=== PATIENT | female | born 1980 | race Caucasian/White ===

== ENCOUNTER 2023-10-11 15:46 | Outpatient (AMB) | payer OTHER, SELFPAY ==
--- NOTE | 2023-10-11 15:48 | A.OFFPC_ITS ---
Vital Signs 10/11/23 15:49 Height 5 ft 6 in Weight 234 lb BMI 37.8 BP 140/100 H Blood Pressure Location Rt brachial Position Sitting Pulse 103 H Pulse Source Pulse Oximeter Pulse Oximetry (%) 96 Oxygen Delivery Method Room Air Intake Visit Reasons: New patient-requesting physical Allergies hydromorphone [From Dilaudid] Allergy (Severe, Verified 10/11/23 15:50) Unresponsive amoxicillin Adverse Reaction (Mild, Verified 10/11/23 15:50) hives Medication List - Last Reconciled 10/11/23 by KIANA Reyes- cetirizine (Zyrtec) 10 mg PO DAILY PRN fenofibrate 145 mg PO DAILY multivitamin 1 tab PO DAILY phenylephrine HCl (Sudafed PE) 10 mg PO Q4-6H PRN spironolactone 25 mg PO DAILY Tobacco use date assessed: 10/11/23 Dental Screening Dental Screen Date: 10/11/23 Did you have a dental visit in the last 12 months?: Yes Did you have a dental problem in the last 6 months where you did not have access to dental care?: No Was dental information given to patient?: Patient has dentist HPI New patient-requesting physical HPI Details New pt is here for a PE. Will order labs. 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 Will refer to endo. Will start spironolactone 25mg for PCOS and blood pressure. Due for mammo, will order. Pt is on sudafed. I explained this is a very unsafe medication to take, especially with HTN. WIll have her take her BPs at home, drop off values in the near future. [facility] Family History Brother Family history of substance abuse Family history of mental disorder Social History Housing: House Patient Tobacco Use Status: Never used Tobacco e-Cigarette/Vaping Use: Never Used service: No Current occupational status: employed Cognitive needs: No Hearing needs: No Vision needs: Yes Questionnaire PHQ-9 Over the last 2 weeks, how often have you been bothered by any of the following problems? 1. Little interest or pleasure in doing things: not at all 2. Feeling down, depressed, or hopeless: not at all 3. Trouble falling or staying asleep, or sleeping too much: several days 4. Feeling tired or having little energy: several days 5. Poor appetite or overeating: not at all 6. Feeling bad about yourself - or that you are a failure or have let yourself or your family down: not at all 7. Trouble concentrating on things, such as reading the newspaper or watching television: not at all 8. Moving or speaking so slowly that other people could have noticed. Or the opposite - being so fidgety or restless that you have been moving around a lot more than usual: not at all 9. Thoughts that you would be better off or of hurting yourself in some way: not at all Total score: 2 Depression Screening Interpretation: Negative Depression Screening Done: Yes 32441 - PHQ-9 Billing: Yes Source: Developed by Drs. Dago Quintana, Candace Jo, Roosevelt Mancia and colleagues, with an educational hugo from [employer]. Thrive Questionnaire Date Thrive assessed: 10/11/23 I am a: Patient What is your living situation today?: I have a steady place to live Within the past 12 months, did the food you bought not last and you didn't have the money to get more?: Never true Within the past 12 months, did you worry whether your food would run out before you got money to buy more?: Never true Do you have trouble paying for medicines?: No Do you have trouble getting transportation to medical appointments?: No Do you have trouble paying your heating and electricity bill?: No Do you have trouble taking care of your child, family member or friend?: No Do you have trouble with day-to-day activities such as bathing, preparing meals, shopping, managing finances, etc.?: No Are you currently unemployed and looking for a job?: No Are you interested in more education?: Yes Currently or been in a relationship where the following occur: no concerns reported AUDIT C Alcohol Use Questionnaire (AUDIT-C) 1. How often do you have a drink containing alcohol?: Never 3. How often do you have six or more drinks on one occasion?: Never Total Score: 0 Score Reviewed/Action Taken: No TENA-7 AMB Questionnaire TENA-7 Date TENA - 7 assessed: 10/11/23 Feeling nervous, anxious, or on edge: 1 = Several days Not being able to stop or control worryin = Not at all Worrying too much about different things: 0 = Not at all Trouble relaxin = Not at all Being so restless that it is hard to sit still: 0 = Not at all Becoming easily annoyed or irritable: 1 = Several days Feeling afraid as if something awful might happen: 0 = Not at all Total TENA-7 score (0-4 normal; 5-9 mild; 10-14 moderate; 15-21 severe): 2 Source: Developed by Drs. Dago Quintana, Candace Jo, Roosevelt Mancia and colleagues, with an educational hugo from [employer]. TENA-7 Assessment Billing TENA-7 Assessment Tool: TENA-7 Assessment 80934 Review of Systems Const Denies chills and Denies fever(s) Eyes Denies blurry vision ENT Denies vertigo, Denies dizziness and Denies sore throat Card Denies chest pain at rest, Denies chest pain with activity, Denies diaphoresis, Denies dyspnea and Denies dyspnea on exertion Resp Denies cough, Denies dyspnea, Denies dyspnea on exertion and Denies wheezing GI Denies abdominal pain, Denies melena, Denies hematochezia, Denies constipation, Denies diarrhea and Denies loose stools Denies hematuria Musc Denies numbness and Denies tingling Skin/Breast Denies lesions Neuro Denies vertigo, Denies dizziness, Denies numbness and Denies tingling Psych Denies anxiety, Denies depression, Denies homicidal ideation, Denies suicidal ideation and Denies other (substance abuse) Aller/Immun Denies wheezing Physical exam (Primary Care) Vital Signs: Last Vital Signs Pulse 103 H 10/11/23 15:49 BP 140/100 H 10/11/23 15:49 Pulse Ox 96 10/11/23 15:49 Oxygen Delivery Method Room Air 10/11/23 15:49 BMI result Body Mass Index 37.8 Tobacco/Smoking Status: Tobacco use Status Tobacco use date assessed 10/11/23 10/11/23 15:55 Patient Tobacco Use Status Never used Tobacco 10/11/23 15:55 e-Cigarette/Vaping Use Never Used 10/11/23 15:55 PHQ-9: PHQ-9 Score PHQ-9: Total score 2 10/11/23 16:48 Depression Screening Interpretation: Negative Thrive Assessment: Date of Thrive Assessment Date Thrive assessed 10/11/23 10/11/23 16:48 Currently or been in a relationship where the following occur: no concerns reported Const General: cooperative Nutritional Appearance: obese Orientation/consciousness: patient oriented x3 HENMT Head: Yes normal to inspection, Yes normocephalic and Yes atraumatic Ears: TM's normal bilaterally Eyes General: appearance normal, both eyes and all related structures Alignment and Position: alignment normal and position normal Neck Neck: Yes normal visual inspection and Yes no lymphadenopathy Thyroid: Thyroid normal Resp Effort & Inspection: normal respiratory effort Auscultation: clear to auscultation bilaterally Cardio Rate: regular rate Rhythm: regular rhythm Heart sounds: S1 normal heart sound present, S2 normal heart sound present and no murmurs GI Palpation (GI): Soft to palpation and nontender Auscultation: normal bowel sounds Skin Other: hirsutism to chin Rashes: no rashes Neuro General: patient oriented x3, moves all extremities, no focal motor deficits and deep tendon reflexes 2+ bilaterally Romberg Test: Negative Psych Appearance: grossly normal Mental Status: mental status grossly normal Speech and movement: Normal speech and movement present Affect: normal affect Attitude: cooperative Thought process: Normal thought process present Thought content: Normal thought content present Insight: Good insight present (Psych) Judgement: Good judgement present (Psych) Assessment and Plan Assessment & Plan (1) Physical exam: Code(s): Z00.00 - Encounter for general adult medical examination without abnormal f indings Plan: Labs ordered (2) PCOS (polycystic ovarian syndrome): Code(s): E28.2 - Polycystic ovarian syndrome Plan: starting spironolactone, referring to endo Plan The patient agreed to the use of a medical specialist for this encounter. Scribed for NORA Hoyos by Ruchi Man medical specialist, on 10/11/2023 at 16:15 EST. Orders: Orders Complete Blood Count Auto Diff Today Z00.00 - Encounter for general adult medical examination without abnormal findings Comprehensive [place]. Panel Fast Today Z00.00 - Encounter for general adult medical examination without abnormal findings TSH reflex Free T4 Today Z00.00 - Encounter for general adult medical examination without abnormal findings UA CC w/rflx Micro + Cult Today Z00.00 - Encounter for general adult medical examination without abnormal findings Lipid Panel Today Z00.00 - Encounter for general adult medical examination without abnormal findings MM screening mammo BI Today Z12.31 - Encounter for screening mammogram for malignant neoplasm of breast Referrals Endocrinology Referral E28.2 - Polycystic ovarian syndrome Medications: New spironolactone 25 mg PO DAILY 90 tabs 0RF fenofibrate 145 mg (0.9667 x 150 mg) PO DAILY 90 caps 0RF Coding Level of Care Code New Pt Prev Care 40-64y(46291) Diagnoses Physical exam Z00.00 PCOS (polycystic ovarian syndrome) E28.2 Additional Codes TENA-7 Assessment Billing - TENA-7 Assessment Tool: TENA-7 Assessment 50268 ([id number])
[2023-10-11 15:49] VITALS: BP 140/100; PULSE 103; O2SAT 96; BMI 37.8
== END 2023-10-11 16:43 | disposition home or self-care (01) ==
PROVIDERS: PCP Nurse Practitioner Family; Visit Provider Nurse Practitioner Family
DX: Z00.00 Encounter for general adult medical examination without abnormal findings (principal); E28.2 Polycystic ovarian syndrome
CPT/HCPCS: 99386

== ENCOUNTER 2023-11-04 07:54 | Outpatient (REF) | payer OTHER, SELFPAY ==
[2023-11-04 11:29] LABS: MANUAL DIFF FLAG NO
[2023-11-04 11:37] LABS: Appearance Urine Clear; Color Urine Yellow; Glucose Urine UA Negative (Negative); Leukocyte Esterase Urine Trace (Negative); Nitrite Urine Negative (Negative); PH 6.5 (5.0-9.0); UMIC TRIGGER UACC YES; Urine Blood Trace (Negative); Urine Ketones Negative (Negative); Urine Protein Negative (Neg-Trace)
[2023-11-04 11:42] LABS: Basophils Absolute Auto 0.1 X10*3/uL (0.0-0.2); Basophils Percent Auto 1.2 % (0-2); Eosinophils Absolute Auto 0.2 X10*3/uL (0.0-0.4); Eosinophils Percent Auto 2.2 % (0-4); Hematocrit 42.9 % (37.0-47.0); Hemoglobin 14.3 g/dl (12.0-16.0); Imm Gran Abs Auto 0.08 X10*3/uL (0.00-0.03); Imm Gran Pct Auto 0.9 % (0.0-0.4); Lymphocytes Absolute Auto 3.4 X10*3/uL (1.2-4.9); Lymphocytes Percent Auto 36.3 % (20-40); Mean Corpuscular HGB Conc 33.3 g/dl (31.0-35.0); Mean Corpuscular Volume 89.9 fL (80.0-98.0); Mean Platelet Volume 9.7 fL (9.4-12.3); Monocytes Absolute Auto 0.7 X10*3/uL (0.1-1.2); Monocytes Percent Auto 7.1 % (2-11); Neutrophils Absolute Auto 4.9 x10*3/uL (2.0-8.3); Neutrophils Percent Auto 52.3 % (45-73); Platelet Count 299 X10*3/uL (160-400); Red Blood Count 4.77 X10*6/uL (4.20-5.50); Red Cell Distribution Width 12.9 % (11.0-16.0); White Blood Count 9.3 X10*3/uL (4.8-10.8)
[2023-11-04 11:42] LABS: Bacteria Urine Trace (None Seen); Hyaline Casts Urine 0-2 /LPF (0-2); RBC Urine 0-2 /HPF (0-2); WBC Urine 0-5 /HPF (0-5)
[2023-11-04 12:04] LABS: Alanine Aminotransferase 37 U/L (0-31); Albumin Level 4.2 g/dL (3.5-5.0); Alkaline Phosphatase 43 U/L (39-117); Anion Gap 14 (12-20); Aspartate Amino Transferase 82 U/L (5-31); Bilirubin Total 0.4 mg/dL (0.0-1.0); Blood Urea Nitrogen 11 mg/dL (9-16); Calcium 10.3 mg/dL (8.4-10.2); Carbon Dioxide 22 mmol/L (22-29); Chloride 103 mmol/L (96-108); Cholesterol 273 mg/dL (<200); Estimated Glomerular Filt Rate > 60; Glucose Fasting 123 mg/dL (60-99); HDL Cholesterol 29 mg/dL (>40); Potassium 3.7 mmol/L (3.3-5.1); Sodium 135 mmol/L (135-145); Total Protein 7.9 g/dL (6.5-8.0); Triglycerides 1303 mg/dL (<150)
[2023-11-04 12:07] LABS: TSH reflex Free T4 2.91 uIU/mL (0.32-4.0)
== END 2023-11-04 07:55 | disposition home or self-care (01) ==
LOC: HO.HMGCLDS 07:54
PROVIDERS: PCP Nurse Practitioner Family; Visit Provider Nurse Practitioner Family
DX: Z00.00 Encounter for general adult medical examination without abnormal findings (principal)
CPT/HCPCS: 36415; 80053; 80061; 81001; 84443; 85025

== ENCOUNTER 2023-11-11 08:28 | Outpatient (REF) | payer OTHER, SELFPAY ==
[2023-11-11 11:29] LABS: Appearance Urine Clear; Color Urine Yellow; Glucose Urine UA Negative (Negative); Leukocyte Esterase Urine Moderate (2+) (Negative); Nitrite Urine Negative (Negative); Specific Gravity - Urine <= 1.005 (1.005-1.025); UMIC TRIGGER UACC YES; Urine Blood Small (1+) (Negative); Urine Ketones Negative (Negative); Urine Protein Negative (Neg-Trace)
[2023-11-11 11:47] LABS: Bacteria Urine Trace (None Seen); Hyaline Casts Urine 0-2 /LPF (0-2); RBC Urine 0-2 /HPF (0-2); Squamous Epithelial Cell Urine 0-2 /HPF (0-2); UACC Culture Trigger YES
[2023-11-11 12:06] LABS: Alanine Aminotransferase 24 U/L (0-31); Albumin Level 4.2 g/dL (3.5-5.0); Alkaline Phosphatase 40 U/L (39-117); Anion Gap 15 (12-20); Aspartate Amino Transferase 39 U/L (5-31); Bilirubin Total 0.3 mg/dL (0.0-1.0); Blood Urea Nitrogen 9 mg/dL (9-16); Calcium 10.1 mg/dL (8.4-10.2); Carbon Dioxide 22 mmol/L (22-29); Chloride 105 mmol/L (96-108); Cholesterol 226 mg/dL (<200); Estimated Glomerular Filt Rate > 60; Glucose Fasting 123 mg/dL (60-99); HDL Cholesterol 29 mg/dL (>40); Potassium 4.3 mmol/L (3.3-5.1); Sodium 138 mmol/L (135-145); Total Protein 7.6 g/dL (6.5-8.0); Triglycerides 838 mg/dL (<150)
[2023-11-13 04:09] LABS: HBS Num1 0.43 mIU/mL (0-7.99); HBc Num1 0.07 S/CO (0.00-0.79); HBsAGNum1 0.31 S/CO (0.00-0.99); Hepatitis A Antibody IgM 0.21 Index (0-0.79); Hepatitis B Core Antibody Nonreactive (Nonreactive); Hepatitis B Surface Antigen Negative (Negative); ~HepC Num1 0.07 S/CO (0.00-0.79); ~Hepatitis A Antibody IgM Nonreactive (Nonreactive); ~Hepatitis B Surface Antibody NONREACTIVE (Nonreactive); ~Hepatitis C Antibody Nonreactive (Nonreactive)
== END 2023-11-11 08:29 | disposition home or self-care (01) ==
LOC: HO.HMGCLDS 08:28
PROVIDERS: PCP Nurse Practitioner Family; Visit Provider Nurse Practitioner Family
DX: R74.8 Abnormal levels of other serum enzymes (principal); E78.1 Pure hyperglyceridemia; R82.90 Unspecified abnormal findings in urine
CPT/HCPCS: 36415; 80053; 80061; 81001; 86704; 86706; 86709; 86803; 87086; 87340

== ENCOUNTER 2023-11-22 08:47 | Outpatient (REF) | payer OTHER, SELFPAY ==
--- NOTE | ~2023-11-22 | US_ITS ---
EXAMINATION: US ABDOMEN COMPLETE CLINICAL INFORMATION: Abnormal levels of other serum enzymes. Elevated liver enzymes. COMPARISON: None available. TECHNIQUE: Real-time imaging of the abdominal viscera. Technically difficult study secondary to body habitus. FINDINGS: PANCREAS: Limited. The visualized pancreatic head and body are normal in appearance. The remainder of the pancreas is obscured from visualization by the overlying bowel gas. ABDOMINAL AORTA: The proximal, mid, and distal segments are normal in caliber. INFERIOR VENA CAVA: Visualized portions are normal. LIVER: There is hepatomegaly, with a longitudinal span of 22.5 cm. The liver contour is normal. There is diffuse increased liver parenchymal echogenicity. No focal hepatic lesion. There is no intrahepatic biliary duct dilatation seen. GALLBLADDER: The gallbladder is physiologically distended. Multiple mobile gallstones are present. No evidence of gallbladder wall thickening or pericholecystic fluid. COMMON BILE DUCT: Normal in caliber measuring 0.5 cm in diameter. RIGHT KIDNEY: Normal. No hydronephrosis. No renal calculi or focal parenchymal lesions. The kidney measures 14.0 cm in maximum dimension. LEFT KIDNEY: Normal. No hydronephrosis. No renal calculi or focal parenchymal lesions. The kidney measures 13.3 cm in maximum dimension. SPLEEN: Normal. The spleen measures 12.9 cm in maximum dimension. FREE FLUID: None. US/US abdomen complete IMPRESSION: 1. There is hepatomegaly and borderline splenomegaly. 2. There is generalized increase in hepatic echotexture, consistent with fatty infiltration or hepatocellular disease. Please correlate clinically. No focal hepatic mass or intrahepatic biliary dilatation is seen. 3. There is cholelithiasis. 4. Technically limited examination of the pancreatic tail.
== END 2023-11-22 08:48 | disposition home or self-care (01) ==
LOC: HO.HMGCX 08:47
PROVIDERS: PCP Nurse Practitioner Family; Visit Provider Nurse Practitioner Family
DX: R74.8 Abnormal levels of other serum enzymes (principal)
CPT/HCPCS: 76700

== ENCOUNTER 2023-12-04 11:42 | Outpatient (REF) | payer OTHER, SELFPAY ==
--- NOTE | ~2023-12-04 | MM_ITS ---
EXAMINATION: MM SCREENING DIGITAL BREAST TOMOSYNTHESIS, BILATERAL CLINICAL INFORMATION: Screening. Asymptomatic. COMPARISON: Mammography: This is a baseline mammogram. TECHNIQUE: Digital breast tomosynthesis is performed in both the craniocaudal and mediolateral oblique views along with computer-aided detection (CAD). Synthesized 2D images are generated from the tomosynthesis. FINDINGS: There are scattered areas of fibroglandular density (ACR BI-RADS breast composition Category b). There are no significant masses, abnormal calcifications, or other abnormalities. MM/MM tomosynthesis screening BI IMPRESSION: No mammographic evidence of malignancy. ASSESSMENT: BI-RADS BI-RADS 1 - Negative RECOMMENDATION: Routine annual mammography screening. 1 year F/U This examination should not preclude the clinical evaluation of a suspicious palpable abnormality. This patient's information was entered into a reminder system with a target due date for their next mammogram.
== END 2023-12-04 11:43 | disposition home or self-care (01) ==
LOC: HO.MAMMO 11:42
PROVIDERS: PCP Nurse Practitioner Family; Visit Provider Nurse Practitioner Family
DX: Z12.31 Encounter for screening mammogram for malignant neoplasm of breast (principal)
CPT/HCPCS: 77063; 77067

== ENCOUNTER → 2023-12-04 11:45 | Outpatient (BNV) | payer OTHER, SELFPAY | PROVIDERS: PCP Nurse Practitioner Family; Visit Provider Radiology Diagnostic Radiology | DX: Z12.31 Encounter for screening mammogram for malignant neoplasm of breast (principal) | CPT/HCPCS: 77063; 77067 ==

== ENCOUNTER 2023-12-30 08:03 | Outpatient (REF) | payer OTHER, SELFPAY ==
[2023-12-30 12:27] LABS: Alanine Aminotransferase 53 U/L (0-31); Albumin Level 4.3 g/dL (3.5-5.0); Alkaline Phosphatase 37 U/L (39-117); Anion Gap 15 (12-20); Aspartate Amino Transferase 70 U/L (5-31); Bilirubin Total 0.5 mg/dL (0.0-1.0); Blood Urea Nitrogen 11 mg/dL (9-16); Calcium 10.5 mg/dL (8.4-10.2); Carbon Dioxide 24 mmol/L (22-29); Chloride 103 mmol/L (96-108); Cholesterol 203 mg/dL (<200); Estimated Glomerular Filt Rate > 60; Glucose Fasting 131 mg/dL (60-99); HDL Cholesterol 27 mg/dL (>40); Potassium 4.1 mmol/L (3.3-5.1); Sodium 138 mmol/L (135-145); Total Protein 7.9 g/dL (6.5-8.0); Triglycerides 776 mg/dL (<150)
[2023-12-30 12:35] LABS: Appearance Urine Clear; Color Urine Yellow; Glucose Urine UA Negative (Negative); Leukocyte Esterase Urine Negative (Negative); Nitrite Urine Negative (Negative); PH 7.5 (5.0-9.0); Specific Gravity - Urine <= 1.005 (1.005-1.025); Urine Blood Negative (Negative); Urine Ketones Negative (Negative); Urine Protein Negative (Neg-Trace)
== END 2023-12-30 08:04 | disposition home or self-care (01) ==
LOC: HO.HMGCLDS 08:03
PROVIDERS: PCP Nurse Practitioner Family; Visit Provider Nurse Practitioner Family
DX: Z00.00 Encounter for general adult medical examination without abnormal findings (principal); E78.1 Pure hyperglyceridemia; E78.5 Hyperlipidemia, unspecified
CPT/HCPCS: 36415; 80053; 80061; 81003

== ENCOUNTER 2024-01-01 06:57 | Outpatient (AMB) | payer OTHER, SELFPAY ==
--- NOTE | 2024-01-01 07:19 | A.OFFPC_ITS ---
Intake Visit Reasons: Discuss BP logs/Labs Allergies hydromorphone [From Dilaudid] Allergy (Severe, Verified 10/11/23 15:50) Unresponsive amoxicillin Adverse Reaction (Mild, Verified 10/11/23 15:50) hives atorvastatin [From Lipitor] Adverse Reaction (Verified 11/08/23 08:57) muscle pain Medication List - Last Reconciled 01/01/24 by NORA Reyes cetirizine (Zyrtec) 10 mg PO DAILY PRN fenofibrate nanocrystallized 145 mg PO DAILY 90 days fluvastatin 20 mg PO QPM metformin ER 500 mg PO BID 90 days multivitamin 1 tab PO DAILY omega-3 acid ethyl esters 2 caps PO BID 90 days phenylephrine HCl (Sudafed PE) 10 mg PO Q4-6H PRN spironolactone 50 mg PO DAILY Tobacco use date assessed: 10/11/23 HPI Discuss BP logs/Labs HPI Details Dyslipidemia: On fluvastatin 20mg, fenofibrate 145mg, and omega 3 acid ethyl esters 2 caps bid. Last lipids were elevated. Will increase fluvastatin to 40mg. Pt has been working on her diet. She is taking her medications as prescribed. Pt is following up with endo due to PCOS. She is on metformin for this. Pt's is a newly-diagnosed diabetic, on a statin. Will increase metformin from 500mg daily to 500mg bid. Denies polyuria, polydipsia, and neuropathy. Pt denies any signs and symptoms of hypoglycemia and does know how to correct it. Pt is interested in trying a medication for weight loss and to help with her sugars. Will send ozempic 0.25mg, this class should help her with her weight loss, which should help a lot of her current conditions. Will cont to monitor. Will start losartan for blood pressure and renal protection. [facility] Family History Brother Family history of substance abuse Family history of mental disorder Social History Housing: House Patient Tobacco Use Status: Never used Tobacco e-Cigarette/Vaping Use: Never Used service: No Current occupational status: employed Cognitive needs: No Hearing needs: No Vision needs: Yes Questionnaire Thrive Questionnaire Date Thrive assessed: 10/11/23 TENA-7 AMB Questionnaire TENA-7 Date TENA - 7 assessed: 10/11/23 Source: Developed by Drs. Dago Quintana, Candace Jo, Roosevelt Mancia and colleagues, with an educational hugo from [employer]. Review of Systems Const Reports as per HPI Physical exam (Primary Care) Tobacco/Smoking Status: Tobacco use Status Tobacco use date assessed 10/11/23 01/01/24 07:20 Patient Tobacco Use Status Never used Tobacco 01/01/24 07:20 e-Cigarette/Vaping Use Never Used 01/01/24 07:20 Thrive Assessment: Date of Thrive Assessment Date Thrive assessed 10/11/23 01/01/24 07:20 Const General: cooperative Orientation/consciousness: patient oriented x3 Neuro General: patient oriented x3 Psych Appearance: grossly normal Mental Status: mental status grossly normal Speech and movement: Clear speech present Affect: normal affect Attitude: cooperative Thought process: Normal thought process present Thought content: Normal thought content present Insight: Good insight present (Psych) Judgement: Good judgement present (Psych) Telehealth Telehealth Location of provider rendering services: practice address Location of patient: address on file Patient Identification confirmed using: Name, : Yes Telehealth method: video Patient verbally consented to treatment: Yes Patient verbally consented to billing insurance company: Yes Patient informed of any privacy concerns related to visit: Yes Minutes spent on Phone/Video with Pt.: 10 Assessment and Plan Assessment & Plan (1) High triglycerides: Code(s): E78.1 - Pure hyperglyceridemia Plan: increased fluvastatin, already on fenofibrate and generic lovaza (2) Dyslipidemia: Code(s): E78.5 - Hyperlipidemia, unspecified Plan: increased fluvastatin, continue all other meds, cont to watch labs (3) Diabetes: Code(s): E11.9 - Type 2 diabetes mellitus without complications Plan: seeing endo, also associated PCOS. increased metformin, and started ozempic Plan The patient agreed to the use of a medical apparatus model maker for this encounter. Scribed for NORA Hoyos by Ruchi Man medical apparatus model maker, on 01/01/2024 at 07:15 EST. Orders: Orders Lipid Panel 2 Months E78.1 - Pure hyperglyceridemia, E78.5 - Hyperlipidemia, unspecified UA CC w/rflx Micro + Cult 2 Months E78.1 - Pure hyperglyceridemia, E78.5 - Hyperlipidemia, unspecified Complete Blood Count Auto Diff 2 Months E78.1 - Pure hyperglyceridemia, E78.5 - Hyperlipidemia, unspecified Comprehensive [place]. Panel Fast 2 Months E78.1 - Pure hyperglyceridemia, E78.5 - Hyperlipidemia, unspecified Medications: New semaglutide (Ozempic) for 4 weeks 0.25 mg (0.368 mL) subcut QWEEK 3 mL 0RF losartan for BP and Renal Protection (diabetes) 25 mg PO DAILY 90 tabs 0RF 90 days Changed From metformin ER 500 mg PO DAILY 90 tabs 0RF To metformin ER 500 mg PO BID 90 days 180 tabs 0RF From fluvastatin 20 mg PO QPM 90 caps 0RF To fluvastatin 40 mg PO QPM 90 caps 0RF Coding Level of Care Code Tele Est Pt Level 3 (60789) Diagnoses High triglycerides E78.1 Dyslipidemia E78.5 Diabetes E11.9
== END 2024-01-01 13:54 | disposition home or self-care (01) ==
PROVIDERS: PCP Nurse Practitioner Family; Visit Provider Nurse Practitioner Family
DX: E78.1 Pure hyperglyceridemia (principal); E78.5 Hyperlipidemia, unspecified; E11.9 Type 2 diabetes mellitus without complications
CPT/HCPCS: 99214

== ENCOUNTER 2024-03-23 09:10 | Outpatient (REF) | payer OTHER, SELFPAY ==
[2024-03-23 11:08] LABS: MANUAL DIFF FLAG NO
[2024-03-23 11:11] LABS: Basophils Absolute Auto 0.1 X10*3/uL (0.0-0.2); Basophils Percent Auto 0.8 % (0-2); Eosinophils Absolute Auto 0.2 X10*3/uL (0.0-0.4); Eosinophils Percent Auto 1.6 % (0-4); Hemoglobin 14.7 g/dl (12.0-16.0); Imm Gran Abs Auto 0.04 X10*3/uL (0.00-0.03); Imm Gran Pct Auto 0.4 % (0.0-0.4); Lymphocytes Absolute Auto 3.8 X10*3/uL (1.2-4.9); Lymphocytes Percent Auto 37.8 % (20-40); Mean Corpuscular Hemoglobin 30.2 pg (27.0-33.0); Mean Corpuscular Volume 86.4 fL (80.0-98.0); Mean Platelet Volume 8.9 fL (9.4-12.3); Monocytes Absolute Auto 0.7 X10*3/uL (0.1-1.2); Monocytes Percent Auto 7.3 % (2-11); Neutrophils Absolute Auto 5.2 x10*3/uL (2.0-8.3); Neutrophils Percent Auto 52.1 % (45-73); Platelet Count 320 X10*3/uL (160-400); Red Blood Count 4.86 X10*6/uL (4.20-5.50)
[2024-03-23 11:14] LABS: Appearance Urine Cloudy; Color Urine Yellow; Glucose Urine UA Negative (Negative); Leukocyte Esterase Urine Small (1+) (Negative); Nitrite Urine Negative (Negative); PH 6.5 (5.0-9.0); UMIC TRIGGER UACC YES; Urine Blood Negative (Negative); Urine Ketones Negative (Negative); Urine Protein Trace mg/dL (Neg-Trace)
[2024-03-23 11:27] LABS: Bacteria Urine 2+ (None Seen); Hyaline Casts Urine 0-2 /LPF (0-2); RBC Urine 0-2 /HPF (0-2); UACC Culture Trigger YES
[2024-03-23 11:30] LABS: Alanine Aminotransferase 17 U/L (0-31); Albumin Level 4.6 g/dL (3.5-5.0); Alkaline Phosphatase 24 U/L (39-117); Anion Gap 14 (12-20); Aspartate Amino Transferase 21 U/L (5-31); Bilirubin Total 0.5 mg/dL (0.0-1.0); Blood Urea Nitrogen 12 mg/dL (9-16); Carbon Dioxide 22 mmol/L (22-29); Chloride 104 mmol/L (96-108); Cholesterol 193 mg/dL (<200); Estimated Glomerular Filt Rate > 60; Glucose Fasting 85 mg/dL (60-99); HDL Cholesterol 28 mg/dL (>40); Potassium 3.9 mmol/L (3.3-5.1); Sodium 136 mmol/L (135-145); Triglycerides 487 mg/dL (<150)
== END 2024-03-23 09:11 | disposition home or self-care (01) ==
LOC: HO.HMGCLDS 09:10
PROVIDERS: PCP Nurse Practitioner Family; Visit Provider Nurse Practitioner Family
DX: E78.1 Pure hyperglyceridemia (principal); E78.5 Hyperlipidemia, unspecified; R82.90 Unspecified abnormal findings in urine
CPT/HCPCS: 36415; 80053; 80061; 81001; 85025; 87086

== ENCOUNTER 2024-04-01 08:51 | Outpatient (AMB) | payer OTHER, SELFPAY ==
--- NOTE | 2024-04-01 07:12 | A.OFFPC_ITS ---
Intake Visit Reasons: Discuss BP logs/Labs Allergies hydromorphone [From Dilaudid] Allergy (Severe, Verified 04/01/24 07:36) Unresponsive amoxicillin Adverse Reaction (Mild, Verified 04/01/24 07:36) hives atorvastatin [From Lipitor] Adverse Reaction (Verified 04/01/24 07:36) muscle pain Medication List - Last Reconciled 04/01/24 by NORA Reyes blood sugar diagnostic ([employer]Touch Ultra Test strips) Test blood sugar once a day blood-glucose meter ([employer]Touch Ultra2 Meter) As directed cetirizine (Zyrtec) 10 mg PO DAILY PRN fenofibrate nanocrystallized 145 mg PO DAILY 90 days fluvastatin 40 mg PO QPM lancets (OneTouch Delica Plus Lancet) Test blood sugar once a day losartan 25 mg PO DAILY 90 days metformin ER 500 mg PO BID 90 days multivitamin 1 tab PO DAILY omega-3 acid ethyl esters 2 caps PO BID 90 days phenylephrine HCl (Sudafed PE) 10 mg PO Q4-6H PRN semaglutide (Ozempic) 0.5 mg subcut QWEEK spironolactone 50 mg PO DAILY Tobacco use date assessed: 10/11/23 Dental Screening Dental Screen Date: 10/11/23 HPI Discuss BP logs/Labs HPI Details Dyslipidemia: Pt is currently taking fenofibrate 145mg, fluvastatin 40mg, and omega 3 acid ethyl esters, trigs trending down. Will order labs to cont to monitor. HTN: Pt reports that her blood pressure has been stable for the last 1.5 weeks. Denies chest pain, shortness of breath, headache, blurred vision, and dizziness. Pt is following up with endo due to PCOS and diabetes. She is taking ozempic 0.5mg and has been on this dose for 1 month. She would like to continue this current dose right now. [facility] Medical History Fatty liver Family History Brother Family history of substance abuse Family history of mental disorder Social History Housing: House Patient Tobacco Use Status: Never used Tobacco e-Cigarette/Vaping Use: Never Used service: No Current occupational status: employed Cognitive needs: No Hearing needs: No Vision needs: Yes Questionnaire Thrive Questionnaire Date Thrive assessed: 10/11/23 TENA-7 AMB Questionnaire TENA-7 Date TENA - 7 assessed: 10/11/23 Source: Developed by Drs. Dago Quintana, Candace Jo, Roosevelt Mancia and colleagues, with an educational hugo from [employer]. Review of Systems Const Reports as per HPI Physical exam (Primary Care) Tobacco/Smoking Status: Tobacco use Status Tobacco use date assessed 10/11/23 04/01/24 07:13 Patient Tobacco Use Status Never used Tobacco 04/01/24 07:13 e-Cigarette/Vaping Use Never Used 04/01/24 07:13 Thrive Assessment: Date of Thrive Assessment Date Thrive assessed 10/11/23 04/01/24 07:13 Const General: cooperative Orientation/consciousness: patient oriented x3 Neuro General: patient oriented x3 Psych Appearance: grossly normal Mental Status: mental status grossly normal Speech and movement: Clear speech present Affect: normal affect Attitude: cooperative Thought process: Normal thought process present Thought content: Normal thought content present Insight: Good insight present (Psych) Judgement: Good judgement present (Psych) Telehealth Telehealth Telehealth Platform: [employer] Location of provider rendering services: practice address Location of patient: address on file Patient Identification confirmed using: Name, : Yes Telehealth method: video Patient verbally consented to treatment: Yes Patient verbally consented to billing insurance company: Yes Patient informed of any privacy concerns related to visit: Yes Minutes spent on Phone/Video with Pt.: 10 Assessment and Plan Assessment & Plan (1) Dyslipidemia: Code(s): E78.5 - Hyperlipidemia, unspecified Plan: Labs ordered (2) High triglycerides: Code(s): E78.1 - Pure hyperglyceridemia Plan: Labs ordered (3) PCOS (polycystic ovarian syndrome): Code(s): E28.2 - Polycystic ovarian syndrome Plan: Following up with endo (4) Diabetes: Code(s): E11.9 - Type 2 diabetes mellitus without complications Plan: Following up with endo Plan The patient agreed to the use of a medical staff assistant for this encounter. Scribed for KIANA Hoyos- by Ruchi Man, medical staff assistant, on 04/01/2024 at 07:15 EST. Orders: Orders Complete Blood Count Auto Diff Today E78.1 - Pure hyperglyceridemia, E78.5 - Hyperlipidemia, unspecified Comprehensive [place]. Panel Fast Today E78.1 - Pure hyperglyceridemia, E78.5 - Hyperlipidemia, unspecified UA CC w/rflx Micro + Cult Today E78.1 - Pure hyperglyceridemia, E78.5 - Hyperlipidemia, unspecified Lipid Panel Today E78.1 - Pure hyperglyceridemia, E78.5 - Hyperlipidemia, unspecified LDL Cholesterol Direct Today E78.1 - Pure hyperglyceridemia, E78.5 - Hyperlipidemia, unspecified TSH reflex Free T4 Today E78.1 - Pure hyperglyceridemia, E78.5 - Hyperlipidemia, unspecified Coding Level of Care Code Tele Est Pt Level 3 (79310) Diagnoses Dyslipidemia E78.5 High triglycerides E78.1 PCOS (polycystic ovarian syndrome) E28.2 Diabetes E11.9
== END 2024-04-01 09:01 | disposition home or self-care (01) ==
LOC: HO.HMGC 08:51
PROVIDERS: PCP Nurse Practitioner Family; Visit Provider Nurse Practitioner Family
DX: E78.5 Hyperlipidemia, unspecified (principal); E78.1 Pure hyperglyceridemia; E28.2 Polycystic ovarian syndrome; E11.9 Type 2 diabetes mellitus without complications
CPT/HCPCS: 99213

== ENCOUNTER 2024-10-31 07:32 | Outpatient (REF) | payer OTHER, SELFPAY ==
--- OUTSIDE RECORDS SUMMARY | 2024-10-31 08:11 | XMS_ITS | Continuity of Care Document ---
Author Organization [facility] Address [address] [facility] [address] [place] [address] Phone [phone] Care Team Providers Care Corduroy Cutting Supervisor Name Role Phone Luke Jacome Care Team Information Program Manufacturing Leader [phone] Problems Active Problems Provider Date Polycystic ovary [...] Medications SIG Qnty Indications Ordering Provider Date Ogbouzeh8ki/0.5ML Solution Pen-Inject Use 1 Injection (0.5 ML) Under The Skin Every Week 2units E11.9 Brianne Solis M.D. 04/29/2024 Freestyle Yanet 2/Sensor/Flash Glucose Monitoring Vhlzok6Mnxpto Misc 1 sensor to skin every fourteen days as directed dx: e11.9 6units E11.9 Brianne Solis M.D. 02/14/2024 E66.9 -20mg-mcg Tablets Unknown Kzsukvvjhkpyac38kd Tablets Take 2 by reed th every day 30tabs [facility] Metformin HCL UR064nv Tablets ER 24HR 1 by mouth twice a day 180tabs [facility] Fluvastatin Ixgpld31ym Capsules 1 cap by mouth every evening [facility] Eruoh-6-Pscl Ethyl Vvwzqg5fx Capsules [facility] Quchgqledfg178wu Tablets 1 by mouth every day 90tabs [facility] Losartan Qnuqtiyhh12sk Tablets 1 by mouth every day 90tabs [facility] History Medications Cnoycsgn5uy/0.5ML Solution Auto-Inject 5 mg subcutaneously once a week 2ml Z68.37 Brianne Solis M.D. 04/29/2024 - 04/29/2024 Jbflhbtesaxot5hx Tablets 1 tablet by mouth at 11 [...] Free 1.20 ng/dL High 0.10-0.85 1 Test(s) 013941-Mgokg sterone, Total, LC/MS was developed and its performance characteristics determined by [facility]. It has not been cleared or approved [...] Reason for Referral Status Appt Atif e [facility] Endocrinology & Diabetes MORTGAGE OPERATIONS MANAGER Closed [address] [place] [address] [phone]
[2024-10-31 10:12] LABS: MANUAL DIFF FLAG NO
[2024-10-31 10:17] LABS: Basophils Absolute Auto 0.1 X10*3/uL (0.0-0.2); Basophils Percent Auto 0.6 % (0-2); Eosinophils Absolute Auto 0.1 X10*3/uL (0.0-0.4); Hematocrit 41.8 % (37.0-47.0); Hemoglobin 14.1 g/dl (12.0-16.0); Imm Gran Abs Auto 0.05 X10*3/uL (0.00-0.03); Imm Gran Pct Auto 0.5 % (0.0-0.4); Lymphocytes Absolute Auto 3.4 X10*3/uL (1.2-4.9); Lymphocytes Percent Auto 30.9 % (20-40); Mean Corpuscular HGB Conc 33.7 g/dl (31.0-35.0); Mean Corpuscular Volume 88.9 fL (80.0-98.0); Monocytes Absolute Auto 0.7 X10*3/uL (0.1-1.2); Neutrophils Absolute Auto 6.8 x10*3/uL (2.0-8.3); Platelet Count 327 X10*3/uL (160-400); Red Cell Distribution Width 12.6 % (11.0-16.0); White Blood Count 11.1 X10*3/uL (4.8-10.8)
[2024-10-31 10:22] LABS: Appearance Urine Cloudy; Color Urine Yellow; Glucose Urine UA Negative (Negative); Leukocyte Esterase Urine Small (1+) (Negative); Nitrite Urine Negative (Negative); PH 5.5 (5.0-9.0); Specific Gravity - Urine 1.025 (1.005-1.025); UMIC TRIGGER UACC YES; Urine Blood Negative (Negative); Urine Ketones Trace mg/dL (Negative); Urine Protein Trace mg/dL (Neg-Trace)
[2024-10-31 10:38] LABS: Bacteria Urine Trace (None Seen); Hyaline Casts Urine 0-2 /LPF (0-2); UACC Culture Trigger YES
[2024-10-31 10:39] LABS: RBC Urine 0-2 /HPF (0-2)
[2024-10-31 10:47] LABS: Albumin Level 4.4 g/dL (3.5-5.0); Anion Gap 14 (12-20); Aspartate Amino Transferase 22 U/L (5-31); Bilirubin Total 0.3 mg/dL (0.0-1.0); Blood Urea Nitrogen 13 mg/dL (9-16); Calcium 10.4 mg/dL (8.4-10.2); Carbon Dioxide 20 mmol/L (22-29); Chloride 106 mmol/L (96-108); Cholesterol 194 mg/dL (<200); Estimated Glomerular Filt Rate > 60; Glucose Fasting 87 mg/dL (60-99); HDL Cholesterol 32 mg/dL (>40); Potassium 4.3 mmol/L (3.3-5.1); Sodium 136 mmol/L (135-145); Total Protein 8.2 g/dL (6.5-8.0); Triglycerides 485 mg/dL (<150)
[2024-10-31 10:57] LABS: Estimated Average Glucose 114 mg/dL; Hemoglobin A1C 140.5381 umol/L; Hemoglobin A1c % 5.6 % (<6.0); Total Hemoglobin (HGBA1C) 3752.8942 umol/L
[2024-10-31 10:58] LABS: TSH reflex Free T4 3.14 uIU/mL (0.32-4.0)
[2024-10-31 11:03] LABS: Creatinine Urine 241.41 mg/dL; Microalbum/Creatinine Ratio Ur 33.5 ug/mg cr (<30)
[2024-10-31 11:12] LABS: Alkaline Phosphatase 22 U/L (39-117)
[2024-10-31 13:01] LABS: Alanine Aminotransferase 10 U/L (0-31)
== END 2024-10-31 07:33 | disposition home or self-care (01) ==
LOC: HO.HMGCLDS 07:32
PROVIDERS: PCP Nurse Practitioner Family; Visit Provider Nurse Practitioner Family
DX: Z00.00 Encounter for general adult medical examination without abnormal findings (principal); E11.9 Type 2 diabetes mellitus without complications; E66.9 Obesity, unspecified
CPT/HCPCS: 36415; 80053; 80061; 81001; 82043; 82570; 83036; 84443; 85025; 87086

== ENCOUNTER 2024-10-31 07:32 | Outpatient (AMB) | payer OTHER, SELFPAY ==
--- OUTSIDE RECORDS SUMMARY | 2024-10-31 07:34 | XMS_ITS ---
Author Name [facility] Organization Unknown History of Medication Use Medication Directions Dispensed Refills Start Date End Date Stat us losartan (COZAAR) tablet 25 mg Take 1 tablet (25 mg total) by mouth daily. 08/03/2024 10/15/9999 active Multiple Vitamin (MULTIVITAMIN ADULT PO) Take by mouth. 01/17/2024 active cetirizine (ZYRTEC) 10 MG tablet Take 1 tablet (10 mg total) by mouth daily. 01/17/2024 active spironolactone (ALDACTONE) tablet 50 mg 01/17/2024 active fluvastatin (LESCOL) 40 MG capsule 01/17/2024 active clotrimazole-betameth asone (Lotrisone) cream Apply thin film externally to affected area 2 times daily as needed 01/17/2024 active norethindrone-ethinyl estradiol (JUNE11/04) 1-20 MG-MCG per tablet Take 1 tablet by mouth daily. 01/17/2024 active dexamethasone (DECADRON) tablet 1 mg 01/17/2024 active fenofibrate (TRICOR) tablet 145 mg Take 1 tablet (145 mg total) by mouth daily. 01/17/2024 active omega-3 acid ethyl esters (LOVAZA) capsule 1 g 01/17/2024 active losartan (COZAAR) tablet 25 mg 01/17/2024 active Semaglutide,0.25 or 0.5MG/DOS, (Ozempic, 0.25 or 0.5 MG/DOSE,) 2 MG/3ML SOPN 01/17/2024 active valACYclovir (VALTREX) 1000 MG tablet WHEN SYMPTOMS BEGIN TAKE 2 TABLETS BY MOUTH EVERY 12 HOURS FOR ONE DAY (4 TABLETS TOTAL PER EPISODE) 01/17/2024 active metFORMIN (GLUCOPHAGE-XR) ER 24 hr tablet 500 mg 01/17/2024 active Problems Problem Status Onset Date Problem Type Date of Resoluti on Source GERD (gastroesophageal reflux disease) active 2016-07-23 ProblemAct [facility] Hyperlipidemia active 2016-07-23 ProblemAct CTT [facility] Palpitations active 2017-06-16 ProblemAct [facility] EMG Encounter for gynecological examination with abnormal finding active 2020-11-05 ProblemAct [facility] MG Surveillance of contraceptive pill active 2024-08-01 ProblemAct [facility] Menorrhagia with irregular cycle active 2024-08-01 ProblemAct [facility] Hirsutism active 2020-11-05 ProblemAct [facility] Class 2 severe obesity due to excess calories with serious comorbidity and body mass index (BMI) of 37.0 to 37.9 in adult active 2024-01-15 ProblemAct [facility] MG Allergic rhinitis active 2016-07-23 ProblemAct [facility] Syncope and collapse active 2017-06-16 ProblemAct [facility] Cervical cancer screening active 2020-11-05 ProblemAct [facility] PCOS (polycystic ovarian syndrome) active 2017-10-17 ProblemAct [facility] Precordial pain active 2017-06-[address] ProblemAct [facility] Immunizations Vaccine Date Source Lot Number Status Covid-19 (Moderna 12+) 100mcg/0.5mL dosage 05/07/2021 [facility] NEM [id number] completed
--- OUTSIDE RECORDS SUMMARY | 2024-10-31 07:34 | XMS_ITS | Continuity of Care Document ---
Author Organization [facility] Address [address] [facility] [address] [place] [address] Phone [phone] Care Team Providers Care Regional Sales Leader Name Role Phone Luke Jacome Care Team Information Special Services Supervisor + [phone] Problems Active Problems Provider Date Polycystic ovary syndrome [facility] Ons et: 11/29/2023 Type 2 diabetes mellitus [facility] Onse t: 04/29/2024 Hyperlipidemia [facility] Onset: 2023 Obesity [facility] Onset: 2023 Essential hypertension [facility] Onset: 04/29/2024 Body mass index 30+ - obesity [facility] Onset: 04/29/2024 Social History Type Date Description Comments Sex Unknown Tobacco Use Start: Unknown Never Smoked Cigarettes ETOH Use Rarely consumes alcohol Allergies and adverse reactions Active Allergies Criticality Reaction Severity Comments Date Hydromorphone Unable to assess criticality 11/29/2023 Amoxicillin Unable to assess criticality 11/29/2023 Augmentin Unable to assess criticality 11/29/2023 Tramadol Unable to assess criticality 11/29/2023 Dilaudid Unable to assess criticality 11/29/2023 Seasonal Unable to assess criticality 11/29/2023 Medications Active Medications SIG Qnty Indications Ordering Provider Date Eivtsztv2gu/0.5ML Solution Pen-Inject Use 1 Injection (0.5 ML) Under The Skin Every Week 2units E11.9 Brianne Solis M.D. 04/29/2024 Freestyle Yanet 2/Sensor/Flash Glucose Monitoring Lazgna6Bdkafi Misc 1 sensor to skin every fourteen days as directed dx: e11.9 6units E11.9 Brianne Solis M.D. 02/14/2024 E66.9 -20mg-mcg Tablets Unknown Aiiakzpcieitut35qg Tablets Take 2 by reed th every day 30tabs [facility] Metformin HCL HV458xk Tablets ER 24HR 1 by mouth twice a day 180tabs [facility] Fluvastatin Vxidka89zs Capsules 1 cap by mouth every evening [facility] Ezqcw-4-Dmux Ethyl Vktalq2zz Capsules [facility] Eqzegncbpfp656gp Tablets 1 by mouth every day 90tabs [facility] Losartan Ovbmpgnry57wo Tablets 1 by mouth every day 90tabs [facility] History Medications Lhpsisli2bh/0.5ML Solution Auto-Inject 5 mg subcutaneously once a week 2ml Z68.37 Brianne Solis M.D. 04/29/2024 - 04/29/2024 Xsbiujhiwqgxy3kf Tablets 1 tablet by mouth at 11 pm 1giselle Solis M.D. 11/29/2023 - 02/14/2024 Vital Signs Date Vital Result Comment 02/14/2024 8:17am BP Systolic 132 mmHg BP Diastolic 84 mmHg Heart Rate 100 /min Height 66 inches 5'6 Weight 226.50 lb BMI (Body Mass Index) 36.6 kg/m2 Results Test Acquired Date Facility Test Result H/L Range N ote Laboratory test finding 02/14/2024 Inhouse Glucose Fingerstick 112 Laboratory test finding 02/01/2024 [facility] Hemoglobin A1c 7.1 % High 4.8-5.6 1, 2 % Free Testosterone 1.75 % 0.50-2.80 Cortisol 1.4 g /dL Low 6.2-19.4 3 Testosterone F Equilibrium + Tot LC/MS 02/01/2024 [facility] Testosterone, Total, LC/MS 68.4 ng/dL 4 Testosterone, Free 1.20 ng/dL High 0.10-0.85 1 Test(s) 185645-Hycoq sterone, Total, LC/MS was developed and its performance characteristics determined by [facility]. It has not been cleared or approved by the Food and Drug Administration. 2 Prediabetes: 5.7 - 6 .4 Diabetes: >6.4 Glycemic control for adults with diabetes: <7.0 3 Please Note: The ref erence interval and flagging for this test is for an AM collection. If this is a PM collection please use: Cortisol PM: 2.3-11.9 4 Female: Premenopausal 10.0 - 55.0 Postmenopausal 7.0 - 40.0 Medical Devices Description No Information Available Encounters Type Date Location Provider Dx Diagnosis Office Visit 02/14/2024 8:00a Main Office [facility] E11.9 Type 2 diabet es mellitus without complications E66.9 Obesity, unspecified I10 Essential (primary) hypertension E78.5 Hyperlipidemia, unsp ecified Z68.36 Body mass index [BMI ] 36.0-36.9, adult Assessments Date Code Description Provider 02/14/2024 E11.9 Type 2 diabetes mellitus wit hout complications [facility] 02/14/2024 E66.9 Obesity, unspecified [facility] 02/14/2024 I10 Essential (primary) hyperten gabrielle [facility] 02/14/2024 E78.5 Hyperlipidemia, unspecified [facility] 02/14/2024 Z68.36 Body mass index [BMI] 36.0-3 6.9, adult [facility] Plan of Treatment 02/14/2024 - [facility]* E11.9 Type 2 diabetes mellitus without complications * E66.9 Obesity, unspecified * I10 Essential (primary) hypertension * E78.5 Hyperlipidemia, unspecified * Z68.36 Body mass index [BMI] 36.0-36.9, adult* New Medication:* Freestyle Yanet 2/Sensor/Flash Glucose Monitoring System 2 Sensor Functional Status Description No Information Available Mental Status Description No Information Available Referrals Refer to Dr Reason for Referral Status Appt [facility] SENIOR SOFTWARE ARCHITECT Closed [address] [place] [address] [phone]
--- NOTE | 2024-10-31 07:39 | MHC.PC.OV ---
Vital Signs 10/31/24 07:42 Height 5 ft 6 in Weight 222 lb 2 oz BMI 35.8 BP 136/72 Blood Pressure Location Lt brachial Position Sitting Pulse 96 Pulse Source Pulse Oximeter Pulse Oximetry (%) 100 Oxygen Delivery Method Room Air Intake Visit Reasons: PE Intake Note: Pt is here today for her PE; Last mammogram 12/14/23 Allergies hydromorphone [From Dilaudid] Allergy (Severe, Verified 10/31/24 07:43) Unresponsive amoxicillin Adverse Reaction (Mild, Verified 10/31/24 07:43) hives atorvastatin [From Lipitor] Adverse Reaction (Verified 10/31/24 07:43) muscle pain Medication List - Last Reconciled 10/31/24 by PARISA ReyesP- blood sugar diagnostic ([employer]in [employer]ometric[employer]Touch Ultra Test strips) Test blood sugar once a day blood-glucose meter ([email or web address] Ultra2 Meter) As directed cetirizine (Zyrtec) 10 mg PO DAILY PRN fenofibrate nanocrystallized 145 mg PO DAILY 90 days fluvastatin 40 mg PO QPM lancets ([employer]Touch Delica Plus Lancet) Test blood sugar once a day losartan 25 mg PO DAILY metformin ER 500 mg PO BID 90 days multivitamin 1 tab PO DAILY omega-3 acid ethyl esters 2 caps PO BID 90 days phenylephrine HCl (Sudafed PE) 10 mg PO Q4-6H PRN spironolactone 50 mg PO DAILY Tobacco use date assessed: 10/31/24 Dental Screening Dental Screen Date: 10/31/24 Did you have a dental visit in the last 12 months?: Yes Did you have a dental problem in the last 6 months where you did not have access to dental care?: Yes Was dental information given to patient?: Patient has dentist HPI PE HPI Details History of Present Illness The patient is a 44-year-old female presenting for a routine physical examination and management of Type 2 Diabetes Mellitus. She has a history of diabetes characterized by polyuria, polydipsia, and neuropathy. The patient reports compliance with eye examinations being up-to-date. There is no history of recent chest pain, shortness of breath, abdominal pain, constipation, diarrhea, hematuria, SI or HI. She also states that past labs included testing for hemoglobin A1c and microalbumin, indicating ongoing monitoring of her diabetic status. The patient is also under gynecological care, as evidenced by recent Pap screenings, and she is obese. According to her statement, her general health has been stable, without any new complaints beyond the management of her existing conditions. NOTE: will re-establish with endo in near future. Health Maintenance - Eye examination is up to date - Mammogram is up to date - Pap smear screening is regularly conducted by FOOD SCIENCE PROFESSOR provider Social History Review of Systems - Constitutional: Denies chest pain, shortness of breath - Gastrointestinal: Denies abdominal pain, constipation, diarrhea, blood in stool - Neurological: Reports polyuria, polydipsia, neuropathy - Psychiatric: Denies suicidal ideation or homicidal thoughts Physical Exam General: Cooperative, healthy appearing, comfortable, no acute distress and well developed Orientation: Patient oriented x3 Limitations: No limitations Head: Normal to inspection Ears: Hearing grossly normal bilaterally Nose: Normal external nose present Face and sinus: Normal facial exam Eyes: Appearance normal, both eyes and all related structures Neck: Normal visual inspection and Yes full ROM Respiratory: Normal respiratory effort and able to speak in complete sentences. Clear to auscultation bilaterally Cardiovascular: Regular rate and rhythm. Normal S1 and S2 GI: Normal to inspection. Soft to palpation and nontender Skin: No rashes or lesions noted, but very dry feet bilaterally and hands also dry Neuro: Patient oriented x3 Extremities: Normal to inspection, feet intact bilaterally with positive sensation using monofilament Results Plan - Continue management of Type 2 Diabetes Mellitus with regular monitoring of hemoglobin A1c and microalbumin levels. - Ensure compliance with healthy lifestyle modifications to address obesity, such as dietary changes and increased physical activity. - Encourage ongoing compliance with eye and Pap smear examinations. - Maintain up-to-date mammogram screenings as part of routine care. Patient was informed and verbally consented to the use of an ambient scribe for clinic note documentation during this visit. Discussion Notes I discussed with the patient the importance of maintaining control over her Type 2 Diabetes Mellitus through regular monitoring and lifestyle modifications. This includes frequent checking of hemoglobin A1c and microalbumin levels, which are crucial for managing blood glucose and assessing renal function, respectively. We also reviewed her preventive health maintenance measures, underlining the continuation of timely eye examinations and cancer screenings, such as mammograms and Pap smears. The patient expressed understanding and was agreeable to the outlined management plan. Patient Instructions - Continue with routine diabetes monitoring including hemoglobin A1c and microalbumin. - Adhere to a diabetes-friendly diet and consider increasing physical activity to manage weight. - Ensure regular check-ups with your visitor services specialist and FOOD SCIENCE PROFESSOR provider for continued health monitoring. - Please seek medical attention if you experience any new or worsening symptoms, such as chest pain or significant fatigue. [facility] Medical History Fatty liver Family History Brother Family history of substance abuse Family history of mental disorder Social History Housing: House Patient Tobacco Use Status: Never used Tobacco e-Cigarette/Vaping Use: Never Used service: No Current occupational status: employed Cognitive needs: No Hearing needs: No Vision needs: Yes Questionnaire PHQ-9 Over the last 2 weeks, how often have you been bothered by any of the following problems? 1. Little interest or pleasure in doing things: not at all 2. Feeling down, depressed, or hopeless: several days 3. Trouble falling or staying asleep, or sleeping too much: several days 4. Feeling tired or having little energy: several days 5. Poor appetite or overeating: not at all 6. Feeling bad about yourself - or that you are a failure or have let yourself or your family down: not at all 7. Trouble concentrating on things, such as reading the newspaper or watching television: several days 8. Moving or speaking so slowly that other people could have noticed. Or the opposite - being so fidgety or restless that you have been moving around a lot more than usual: not at all 9. Thoughts that you would be better off or of hurting yourself in some way: not at all Total score: 4 Source: Developed by Drs. Dago Quintana, Candace Jo, Roosevelt Mancia and colleagues, with an educational hugo from [employer]. Thrive Questionnaire Date Thrive assessed: 10/25/24 I am a: Patient What is your living situation today?: I have a steady place to live Within the past 12 months, did the food you bought not last and you didn't have the money to get more?: Never true Within the past 12 months, did you worry whether your food would run out before you got money to buy more?: Never true Do you have trouble paying for medicines?: No Do you have trouble getting transportation to medical appointments?: No Do you have trouble paying your heating and electricity bill?: No Do you have trouble taking care of your child, family member or friend?: No Do you have trouble with day-to-day activities such as bathing, preparing meals, shopping, managing finances, etc.?: No Are you currently unemployed and looking for a job?: No Are you interested in more education?: No Please select the resources that you would like help with: None Currently or been in a relationship where the following occur: No concerns reported THRIVE Score: 0 AUDIT C Alcohol Use Questionnaire (AUDIT-C) 1. How often do you have a drink containing alcohol?: Never 3. How often do you have six or more drinks on one occasion?: Never Total Score: 0 TENA-7 AMB Questionnaire TENA-7 Date TENA - 7 assessed: 10/31/24 Feeling nervous, anxious, or on edge: 0 = Not at all Not being able to stop or control worryin = Not at all Worrying too much about different things: 0 = Not at all Trouble relaxin = Several days Being so restless that it is hard to sit still: 1 = Several days Becoming easily annoyed or irritable: 0 = Not at all Feeling afraid as if something awful might happen: 0 = Not at all Total TENA-7 score (0-4 normal; 5-9 mild; 10-14 moderate; 15-21 severe): 2 Source: Developed by Drs. Dago Quintana, Candace Jo, Roosevelt Mancia and colleagues, with an educational hugo from [employer]. Physical exam (Primary Care) Vital Signs: Last Vital Signs Pulse 96 10/31/24 07:42 BP 136/72 10/31/24 07:42 Pulse Ox 100 10/31/24 07:42 Oxygen Delivery Method Room Air 10/31/24 07:42 BMI result Body Mass Index 35.8 Tobacco/Smoking Status: Tobacco use Status Tobacco use date assessed 10/31/24 10/31/24 07:46 Patient Tobacco Use Status Never used Tobacco 10/31/24 07:40 e-Cigarette/Vaping Use Never Used 10/31/24 07:40 PHQ-9: PHQ-9 Score PHQ-9: Total score 4 10/31/24 07:40 Thrive Assessment: Date of Thrive Assessment Date Thrive assessed 10/25/24 10/31/24 07:40 Currently or been in a relationship where the following occur: No concerns reported Coding Level of Care Code Est Pt Prev Care 40-64y(30844) Diagnoses Physical exam Z00.00 Diabetes E11.9 Assessment & Plan Assessment & Plan (1) Physical exam: Code(s): Z00.00 - Encounter for general adult medical examination without abnormal findings Category: Medical (2) Diabetes: Code(s): E11.9 - Type 2 diabetes mellitus without complications Category: Medical Plan . Orders: Orders TSH reflex Free T4 Today E11.9 - Type 2 diabetes mellitus without complications, Z00.00 - Encounter for general adult medical examination without abnormal findings Lipid Panel Today E11.9 - Type 2 diabetes mellitus without complications, Z00.00 - Encounter for general adult medical examination without abnormal findings Microalbumin, Random (w Creat) Today E11.9 - Type 2 diabetes mellitus without complications, Z00.00 - Encounter for general adult medical examination without abnormal findings Hemoglobin A1c Today E11.9 - Type 2 diabetes mellitus without complications, Z00.00 - Encounter for general adult medical examination without abnormal findings Complete Blood Count Auto Diff Today E11.9 - Type 2 diabetes mellitus without complications, Z00.00 - Encounter for general adult medical examination without abnormal findings Comprehensive [place]. Panel Fast Today E11.9 - Type 2 diabetes mellitus without complications, Z00.00 - Encounter for general adult medical examination without abnormal findings UA CC w/rflx Micro + Cult Today E11.9 - Type 2 diabetes mellitus without complications, Z00.00 - Encounter for general adult medical examination without abnormal findings
[2024-10-31 07:42] VITALS: BP 136/72; PULSE 96; O2SAT 100; BMI 35.8
== END 2024-10-31 08:07 | disposition home or self-care (01) ==
PROVIDERS: PCP Nurse Practitioner Family; Visit Provider Nurse Practitioner Family
DX: Z00.00 Encounter for general adult medical examination without abnormal findings (principal); E11.9 Type 2 diabetes mellitus without complications

== ENCOUNTER 2024-12-09 11:30 | Outpatient (REF) | payer OTHER, SELFPAY ==
--- OUTSIDE RECORDS SUMMARY | 2024-12-09 13:16 | XMS_ITS | Clinical Summary ---
Author Organization [facility] Address [address] [place] [address] Care Team Providers Care Veterinary Anatomist Name Role Phone Luke Jacome Primary Care Provider [phone] Allergies Active Allergy Reactions Criticality Noted Date Comments Amoxicillin-Pot Clavulanate Hives 12/18/19 19 Hydromorphone Anaphylaxis High 07/23/2016 Latex Rash Low 05/12/2015 Seasonal 01/15/2024 Tramadol Itching 02/02/2017 Medications Medication Sig Dispensed Refills Start Date End Date Status cetirizine (ZYRTEC) 10 MG tablet Take 1 tablet (10 mg total) by mouth daily. 0 Active fenofibrate (TRICOR) tablet 145 mgIndications:Hypert riglyceridemia Take 1 tablet (145 mg total) by mouth daily. 90 tablet 3 08/17/2017 Active Multiple Vitamin (MULTIVITAMIN ADULT PO) Take by mouth. 0 Active valACYclovir (VALTREX) 1000 MG tablet WHEN SYMPTOMS BEGIN TAKE 2 TABLETS BY MOUTH EVERY 12 HOURS FOR ONE DAY (4 TABLETS TOTAL PER EPISODE) 0 05/13/2023 Active UNABLE TO FIND Pre and Probiotic 0 Act omar metFORMIN (GLUCOPHAGE-XR) ER 24 hr tablet 500 mg 0 01/01/2024 Activ e spironolactone (ALDACTONE) tablet 50 mg 0 12/18/2023 Active omega-3 acid ethyl esters (LOVAZA) capsule 1 g 0 10/16/2023 Active fluvastatin (LESCOL) 40 MG capsule 0 01/01/2024 Active losartan (COZAAR) tablet 25 mg Take 1 tablet (25 mg total) by mouth daily. 0 Active norethindrone-ethiny l estradiol (JUNE11/04) 1-20 MG-MCG per tabletIndications:Me norrhagia with irregular cycle Take 1 tablet by mouth daily. 84 tablet 1 08/01/2024 Active Active Problems Problem Noted Date Diagnosed Date Menorrhagia with irregular cycle 08/01/2024 Surveillance of contraceptive pill 08/01/2024 Class 2 severe obesity due t o excess calories with serious comorbidity and body mass index (BMI) of 37.0 to 37.9 in adult 01/15/2024 Encounter for gynecological examination with abnormal finding 11/05/2020 Hirsutism 11/05/2020 Cervical cancer screening 11/05/2020 PCOS (polycystic ovarian syndrome) 10/17/2017 Precordial pain 06/16/2017 Palpitations 06/16/2017 Syncope and collapse 06/16/2017 Hyperlipidemia 07/23/2016 GERD (gastroesophageal reflux disease) 6 Allergic rhinitis 07/23/2016 Last Assessment & Plan: Start back on the zyrtec daily for sx, cont to use nasal spray (pt has this at home) and f/u if sx do not improve. Resolved Problems Problem Noted Date Diagnosed Date Resolved Date Class 2 severe obesity due t o excess calories with serious comorbidity and body mass index (BMI) of 39.0 to 39.9 in adult 07/14/2023 4 Class 2 severe obesity due t o excess calories with serious comorbidity and body mass index (BMI) of 36.0 to 36.9 in adult 11/09/2021 3 Class 2 severe obesity due t o excess calories with serious comorbidity and body mass index (BMI) of 35.0 to 35.9 in adult 05/10/2021 2 Class 2 severe obesity due t o excess calories with serious comorbidity and body mass index (BMI) of 37.0 to 37.9 in adult 11/05/2020 2 Immunizations Name Administration Dates Next Due Covid-19 (Moderna 12+) 100mcg/0.5mL dosage 05/07 Family History Medical History Relation Name Comments Alcohol abuse Brother 1 Huang Seizures Brother 1 Huang Depression Brother 2 (Siddhartha) now Thora Diabetes Father 73 Hyperlipidemia Father 73 Hypertension Father 73 Colon cancer Paternal Grandmother Mental illness Sister 1 Araceli Relation Name Status Comments Brother 1 Huang Alive Brother 2 (Siddhartha) now Thora Alive Father 73 Maternal Grandmother Mother 66 Alive Paternal Grandmother Sister 1 Araceli Alive Sister 2 Neyda Alive Social History Tobacco Use Types Packs/Day Years Used Date Smoking Tobacco: Former Cigarettes 0.5 Q uit: 10/16/2001 Passive Smoke Exposure: Never Smokeless Tobacco: Never Tobacco Cessation:Counseling Given: No Alcohol Use Standard Drinks/Week Comments Yes 0 (1 standard drink = 0.6 oz pur e alcohol) rare Sex and Gender Information Value Date Recorded Sex Assigned at Female 11/05/2020 11:29 AM EST Gender Identity Female 11/05/2020 11:29 AM EST Sexual Orientation Straight 11/05/2020 11 :29 AM EST Job Start Date Occupation Industry Not on file Not on file Not on file Last Filed Vital Signs Vital Sign Reading Time Taken Comments Blood Pressure 112/78 08/01/2024 8:15 AM EDT Pulse 98 01/16/2018 8:55 AM EDT Temperature 35.2 ??C (95.4 ??F) 11/09/2021 8:57 AM ES T Respiratory Rate 16 01/16/2018 8:55 AM EDT Oxygen Saturation 98% 01/16/2018 8:55 AM EDT Inhaled Oxygen Concentration - - Weight 101.2 kg (223 lb) 08/01/2024 8:08 AM EDT Height 165.1 cm (5' 5 ) 08/01/2024 8:08 AM EDT Body Mass Index 37.11 08/01/2024 8:08 AM EDT Plan of Treatment Health Maintenance Due Date Last Done Comments Hepatitis B Vaccines (1 of 3 - 3-dose series) 1982 Hepatitis C Screening 1982 DTap / Tdap / Td (1 - Tdap) 2001 Depression Screening 11/09/2022 11/09/2021, 05/10/2021, 11/05/2020 COVID-19 Vaccine ( - season) 2024 05/07/2021 Influenza Vaccine (#1) 2024 Preventative Health Evaluation 07/14/2024 07/14/2023, 11/09/2021, 11/05/2020, Additional history exists Cervical Cancer Screening (Pap Smear) 11/09/2024 11/09/2021, 11/05/2020, 09/26/2015 BMI Counseling 08/01/2025 08/01/2024, 04/0 10/2023, 07/14/2023, Additional history exists Pneumococcal Vaccine Aged Out No long er eligible based on patient's age to complete this topic RSV Ped < 20 months Aged Out No longe r eligible based on patient's age to complete this topic Care Teams Veterinary Anatomist Relationship Specialty Start Date End Date Luke Jacome [address] [facility] [address] [place] [address] PCP - General Family Medicine 07/14/23
--- OUTSIDE RECORDS SUMMARY | 2024-12-09 13:16 | XMS_ITS | Encounter Summary ---
Author Organization [facility] Address [address] [place] [address] Care Team Providers Care Iron Bender Name Role Phone Luke Jacome NP Primary Care Provider [phone] Encounter Details Date Type Department Care Team (Late st Contact Info) Description 08/01/2024 8:05 AM EDT Hospital Encounter TH HISTORIC ENCOUNTERS [facility] Noemi Bobo, BHAVYA [address] [place] [address] Social History Tobacco Use Types Packs/Day Years Used Date Smoking Tobacco: Former Cigarettes Q uit: 10/16/2001 Smokeless Tobacco: Never Alcohol Use Standard Drinks/Week Comments Yes 0 (1 standard drink = 0.6 oz pur e alcohol) Comments Unknown Sex and Gender Information Value Date Recorded [...] Palpitation Past Surgical History: Procedure Laterality Date ? ? FRACTURE SURGERY Left 04/2012 & 11/2012 ORIF [...] (around 08/01/2025) for Annual physical. Noemi Bobo DNP,SWITCHBOARD RECEPTIONIST documented in this encounter Plan of Treatment Upcoming Encounters Date Type Department Care Team (Late st Contact Info) Description 01/30/2025 8:30 AM EDT Office Visit OBGYN - [facility] [address] [place] [id number] Noemi Bobo NP [address] [place] [address] [address] documented as of this encounter Visit Diagnoses Not on filedocumented in this encounter Care Teams Iron Bender Relationship Specialty Start Date End Date Luke Jacome NP [address] [place], [place] PCP - General 07/14/23 documented as of this encounter
--- OUTSIDE RECORDS SUMMARY | 2024-12-09 13:17 | XMS_ITS | Clinical Summary ---
Author Organization [facility] [place] [address] Phone Care Team Providers Care Sodium Methylate Operator Name Role Phone Luke Jacome NP Primary Care Provider Allergies Active Allergy Reactions Criticality Noted Date Comments Amoxicillin-Pot Clavulanate Hives 12/18/19 19 Hydromorphone Anaphylaxis High 07/23/2016 Latex Rash Low 05/12/2015 Other 01/15/2024 Seasonal Tramadol Itching 02/02/2017 Medications cetirizine (ZyrTEC) 10 mg tablet Take 1 tablet (10 mg total) by mouth daily. Active fenofibrate (TRICOR) 145 mg tablet Take 1 tablet (145 mg total) by mouth daily. 7 Active fluvastatin (LESCOL) 40 mg capsule 4 Active losartan (COZAAR) 25 mg tablet Take 1 tablet (25 mg total) by mouth daily. Active metFORMIN XR (GLUCOPHAGE-XR) 500 mg 24 hr tablet 4 Active multivit-min/iron /folic acid/K (ADULTS MULTIVITAMIN ORAL) Take by mouth. Activ e norethindrone-eth inyl estradiol (JUNEL FE 11/04) 1 mg-20 mcg (21)/75 mg (7) per tablet Take 1 tablet by mouth daily. 4 Active omega-3 acid ethyl esters (LOVAZA) 1 gram capsule 4 Active spironolactone (ALDACTONE) 50 mg tablet 4 Active valACYclovir (VALTREX) 1 gram tablet WHEN SYMPTOMS BEGIN TAKE 2 TABLETS BY MOUTH EVERY 12 HOURS FOR ONE DAY (4 TABLETS TOTAL PER EPISODE) 3 Active UNABLE TO FIND Med Name: Pre and Probiotic Active Active Problems Problem Noted Date Diagnosed Date Class 2 severe obesity due t o excess calories with serious comorbidity and body mass index (BMI) of 37.0 to 37.9 in adult 09/24/2024 Menorrhagia with irregular cycle 08/01/2024 Hirsutism 11/05/2020 PCOS (polycystic ovarian syndrome) 10/17/2017 Palpitations 06/16/2017 Precordial pain 06/16/2017 Syncope and collapse 06/16/2017 Allergic rhinitis 07/23/2016 Overview (09/24/2024): Last Assessment & Plan: Start back on the zyrtec daily for sx, cont to use nasal spray (pt has this at home) and f/u if sx do not improve. GERD (gastroesophageal reflux disease) 6 Hyperlipidemia 07/23/2016 Surgical History Surgery Date Site/Laterality Comments FRACTURE SURGERY 04/2012 & 11/2012 Left PROCEDURE:FRACTURE SURGERY;COMMENT:ORIF left leg repair WISDOM TOOTH EXTRACTION PROCEDURE:WISDOM TOOTH EXTRACTION Medical History Medical History Date Comments High cholesterol DX:High cholest erik GERD (gastroesophageal reflux disease) DX:GERD (gastroesophageal reflux disease) Allergic DX:Allergic Obesity DX:Obesity Chest pain DX:Chest pain Palpitation DX:Palpitation Dyspnea on effort DX:Dyspnea on effort Family History Medical History Relation Name Comments [...] on file Sexual Orientation Not on file Obstetrics History Last Filed Vital Signs Vital Sign Reading [...] 08/01/2024 8:08 AM EDT Plan of Treatment Upcoming Encounters Date Type Department Care Team (Late st Contact Info) Description 01/30/2025 8:30 AM EDT Office Visit [facility] - [facility] [address] [facility] [place] [address] Noemi Bobo, BHAVYA [address] [facility] [facility] [address] [place] [address] Health Maintenance Due Date Last Done Comments Breast Cancer Screening 1982 DTaP,Tdap,and Td Vaccines (1 - Tdap) 2001 Hepatitis B Vaccines (1 of 3 - 19+ 3-dose series) 2001 Depression Screening 09/18/2022 HIV Screening 09/18/2022 Hepatitis C Screening 09/18/2022 Social Influencers of Health Screening 09/18/2022 Cholesterol Screening (Lipid Panel) 01/10/2023 01/10/2018, 01/10/2018 COVID-19 Vaccine (2 - 2023-2 5 season) 2024 05/07/2021 Influenza Vaccine (#1) 2024 Cervical Cancer Screening: HPV 11/09/2026 11/09/2021 HIB Vaccines Aged Out No longer eligi ble based on patient's age to complete this topic HPV Vaccines Aged Out No longer eligi ble based on patient's age to complete this topic Hepatitis A Vaccines Aged Out No long er eligible based on patient's age to complete this topic IPV Vaccines Aged Out No longer eligi ble based on patient's age to complete this topic MMR Vaccines Aged Out No longer eligi ble based on patient's age to complete this topic Meningococcal ACWY Vaccine Aged Out N o longer eligible based on patient's age to complete this topic Meningococcal B Vacine Aged Out No lo nger eligible based on patient's age to complete this topic Pneumococcal Vaccine: Pediatrics (0 to 5 Years) and At-Risk Patients (6 to 64 Years) Aged Out No longer eligible b ased on patient's age to complete this topic RSV Immunization Patients Under 20 months Aged Out No longer eligible b ased on patient's age to complete this topic Varicella Vaccines Aged Out No longer eligible based on patient's age to complete this topic Procedures Procedure Name Priority Date/Time Associated Diagnosis Comments HPV Routine 11/09/2021 LIPID PANEL Routine 01/10/2018 from Last 3 Months or Most Recently Relevant to Health Maintenance Results * Cervical Cancer Screening: HPV (11/09/2021) Pathologist [facility] Cervical Cancer Screening: HPV Abstracted ,Negative Historical Provider HEALTH MAINTENANCE Final Result * (ABNORMAL) Lipid panel (01/10/2018) Pathologist [facility] Triglycerides 819(A) <=150 mg/dL Cholesterol 240(A) 0 - 200 mg/dL HDL 34(A) 35 - 80 mg/dL Blood Venous blood specimen / Unknown Historical Provider LAB BLOOD ORDERABLES Lucero l Result from Last 3 Months or Most Recently Relevant to Health Maintenance Care Teams Sodium Methylate Operator Relationship Specialty Start Date End Date Luke Jacome, BHAVYA [address] [facility] [place], [place] PCP - General 07/14/23
--- OUTSIDE RECORDS SUMMARY | 2024-12-09 13:17 | XMS_ITS | Continuity of Care Document ---
Author Organization [facility] Address [address] [facility] [address] [place] [address] Phone [phone] Care Team Providers Care Adjunct Nursing Faculty Name Role Phone Luke Jacome Care Team Information Automatic Edger + [phone] Problems Active Problems Provider Date Polycystic ovary [...] Medications SIG Qnty Indications Ordering Provider Date Szzntjbj7la/0.5ML Solution Pen-Inject Use 1 Injection (0.5 ML) Under The Skin Every Week 2units E11.9 Brianne Solis M.D. 04/29/2024 Freestyle Yanet 2/Sensor/Flash Glucose Monitoring Llstsx4Tyxrah Misc 1 sensor to skin every fourteen days as directed dx: e11.9 6units E11.9 Brianne Solis M.D. 02/14/2024 E66.9 -20mg-mcg Tablets Unknown Ppijfwndjgdxip61ew Tablets Take 2 by reed th every day 30tabs [facility] Metformin HCL PW040wv Tablets ER 24HR 1 by mouth twice a day 180tabs [facility] Fluvastatin Qxckqy93zm Capsules 1 cap by mouth every evening [facility] Gdrte-7-Zkss Ethyl Njozwb1rj Capsules [facility] Hzhtadslbzk013sg Tablets 1 by mouth every day 90tabs [facility] Losartan Yldgjsnjw88yc Tablets 1 by mouth every day 90tabs [facility] History Medications Jilxjscn6fq/0.5ML Solution Auto-Inject 5 mg subcutaneously once a week 2ml Z68.37 Brianne Solis M.D. 04/29/2024 - 04/29/2024 Vital Signs Date Vital Result Comment 02/14/2024 [...] Free 1.20 ng/dL High 0.10-0.85 1 Test(s) 398223-Mxunm sterone, Total, LC/MS was developed and its performance characteristics determined by [facility]. It has not been cleared or approved [...] Description No Information Available Referrals Refer to Reason for Referral Status Appt Atif e [facility] Endocrinology & Diabetes RADIO CONTROL CRANE OPERATOR Closed [address] [place] [address] [phone]
--- OUTSIDE RECORDS SUMMARY | 2024-12-09 13:17 | XMS_ITS | Clinical Summary ---
Author Organization [facility] Address [address] [place] [address] Care Team Providers Care Placement Interviewer Name Role Phone Ranjith Ojeda MD Primary Care Provider + Allergies Active Allergy Reactions Criticality Noted Date Comments Amoxicillin-Pot Clavulanate Hives 12/18/19 19 Hydromorphone (Bulk) Anaphylaxis High 08/05/2015 Hydromorphone Hcl Shortness Of Breath High 8 Latex Rash Low 05/12/2015 Tramadol Itching Low 11/15/2017 Medications fenofibrate (TRICOR) 145 MG tablet Take by mouth. 08/17/2017 Active Lo Loestrin Fe 1 mg-10 mcg (24)/10 mcg (2) tab TAKE 1 TABLET BY MOUTH EVERY DAY 01/14/2021 Active cetirizine (ZyrTEC) 10 MG tablet Take 1 tablet (10 mg total) by mouth daily Active lidocaine HCL 2 % soln Use 10 ml Gargle and Spit solution. Maximum dose: 4 doses in 12-hour period. 75 mL 08/03/2023 Active Immunizations Name Administration Dates Next Due PPD Test 05/06/2022 Social History Tobacco Use Types Packs/Day Years Used Date Smoking Tobacco: Never Smokeless Tobacco: Never Tobacco Cessation:Counseling Given: Not Answered Comments No Sex and Gender Information Value Date Recorded Sex Assigned at Female 07/15/2021 9:10 AM EDT Legal Sex Female 12:29 PM EDT Gender Identity Female 07/15/2021 9:10 AM EDT Sexual Orientation Straight 07/15/2021 9: 10 AM EDT Last Filed Vital Signs Vital Sign Reading Time Taken Comments Blood Pressure 138/87 08/03/2023 9:55 AM EDT Pulse 104 08/03/2023 9:55 AM EDT Temperature 36.5 ??C (97.7 ??F) 08/03/2023 9:55 AM ED T Respiratory Rate 17 08/03/2023 9:55 AM EDT Oxygen Saturation 99% 08/03/2023 9:55 AM EDT Inhaled Oxygen Concentration - - Weight 104 kg (230 lb) 08/03/2023 9:55 AM EDT Height 167.6 cm (5' 6 ) 08/03/2023 9:55 AM EDT Body Mass Index 37.12 08/03/2023 9:55 AM EDT Plan of Treatment Health Maintenance Due Date Last Done Comments Depression: Screening Annual ly using PHQ-2/9 in Adults 18 yrs or above (or HM Modifier)([facility]) 2000 Hepatitis C Virus Infection in Adolescents and Adults: Screening (or Modifier) ([facility]) 2000 SDOH Screening Reminder: Cecilia terillbethany for all adults ([facility]) 2000 Tobacco Smoking Cessation: i n Adults excluding Women: Behavioral and Pharmacotherapy Interventions ([facility]) 2000 DTaP/Tdap/Td Vaccines ([facility]) (1 - Tdap) 2001 Lipid Screening: Once for Wo men aged 20 to 45 yrs ([facility]) 2002 Cervical Cancer Screenin 1-65 yrs of age (or Modifier) 2003 Cervical Cancer Screening: P ap every 3 yrs pts age 21-65 2003 Cervical Cancer: Pap Screeni ng with Modifier timing ([facility]) 2003 Cervical Cancer: hrHPV alone or with cotesting Pap for Pts 30-65yrs screening every 5yrs ([facility]) 2003 Flu Vaccination: Yearly for ages 18mos through 64 years (or Modifier)([facility]) 05/16/2024 COVID-19 Vaccine Screening: Initial Series and Booster Status ([facility]) ( - 2023- season) 2024 05/07/2021 Zoster/Shingles Vaccine Seri es Screening: Adults aged 18+ yrs (or HM Modifiers)([facility]) (1 of 2) 2032 Pneumococcal Vaccination Scr eening: Pts 0-19 & 19-64 yrs of age ([facility]) Aged Out No longer eligible b ased on patient's age to complete this topic Medical Devices Not on file Insurance [facility] Care Teams Placement Interviewer Relationship Specialty Start Date End Date Ranjith Ojeda MD [facility] OFF[facility] [address] [place] [phone] PCP - Hot Cell Technician 11/23/19
== END 2024-12-09 11:31 | disposition home or self-care (01) ==
LOC: HO.MAMMO 11:30
PROVIDERS: PCP Nurse Practitioner Family; Visit Provider Nurse Practitioner Family
DX: Z12.31 Encounter for screening mammogram for malignant neoplasm of breast (principal)
CPT/HCPCS: 77063; 77067

== ENCOUNTER → 2024-12-09 11:45 | Outpatient (BNV) | payer OTHER, SELFPAY | PROVIDERS: PCP Nurse Practitioner Family; Visit Provider Internal Medicine | DX: Z12.31 Encounter for screening mammogram for malignant neoplasm of breast (principal) | CPT/HCPCS: 77063; 77067 ==

== ENCOUNTER 2025-05-24 07:49 | Outpatient (REF) | payer OTHER, SELFPAY ==
--- OUTSIDE RECORDS SUMMARY | 2025-05-24 07:51 | XMS_ITS | Continuity of Care Document ---
Author Organization [facility] [address] [facility] [address] [place] [address] Phone [phone] Care Team Providers Care Production Machine Computer Operator Name Role Phone Luke Jacome Care Team Information [place] + [phone] Problems Active Problems Provider Date Polycystic ovary syndrome [employer] [place] Ons et: 11/29/2023 Type 2 diabetes mellitus [employer] [place] Onse t: 04/29/2024 Hyperlipidemia [employer] [place] Onset: 2023 Obesity [employer] [place] Onset: 2023 Essential hypertension [employer] [place] Onset: 04/29/2024 Body mass index 30+ - obesity [employer] [place] Onset: 04/29/2024 Social History Type Date Description Comments Sex Female Sex Unknown Tobacco Use Start: Unknown Never [...] Medications SIG Qnty Indications Ordering Provider Date Autqurew9rn/0.5ML Solution Pen-Inject Use 1 Injection (0.5 ML) Under The Skin Every Week 2units E11.9 Brianne Solis M.D. 04/29/2024 Freestyle Yanet 2/Sensor/Flash Glucose Monitoring Amogiq7Yxexua Misc 1 sensor to skin every fourteen days as directed dx: e11.9 6units E11.9 Brianne Solis M.D. 02/14/2024 E66.9 -20mg-mcg Tablets Unknown Wfriudtkbbxzwe11cl Tablets Take 2 by reed th every day [facility] Metformin HCL GS830qo Tablets ER 24HR 1 by mouth twice a day 180tabs [facility] Fluvastatin Ihvypr74gf Capsules 1 cap by mouth every evening [facility] Swxcg-9-Zlib Ethyl Sisbuk5qq Capsules [facility] Jcuqztmlxia395qo Tablets 1 by mouth every day 90tabs [facility] Losartan Gwaeilxdi23in Tablets 1 by mouth every day 90tabs [facility] Vital Signs Date Vital Result Comment 02/14/2024 8:17am BP Systolic 132 mmHg BP Diastolic 84 mmHg Heart Rate 100 /min Height 66 inches 5'6 Weight 226.50 lb BMI (Body Mass Index) 36.6 kg/m2 Results Test Acquired Date Facility Test Result H/L Range N ote Glucose Fingerstick 02/14/2024 Inhouse Glucose Fingerstick 112 Hemoglobin A1c 02/01/2024 [facility] Hemoglobin A1c 7.1 % High 4.8-5.6 1, 2 % Free Testosterone 02/01/2024 [facility] % Free Testosterone 1.75 % 0.50-2.80 Cortisol 02/01/2024 [facility] Cortisol 1.4 g/dL Low 6.2-19.4 3 Testosterone F Equilibrium + Tot LC/MS 02/01/2024 [facility] Testosterone, Total, LC/MS 68.4 ng/dL 4 Testosterone, Free 1.20 ng/dL High 0.10-0.85 1 Test(s) 451670-Jlzsg sterone, Total, LC/MS was developed and its [...] Reason for Referral Status Appt Atif e [facility] Endocrinology & Diabetes WIRE FRAME MAKER Closed [address] [place] [address] [phone]
--- OUTSIDE RECORDS SUMMARY | 2025-05-24 07:51 | XMS_ITS | Clinical Summary ---
Author Organization [facility] Address [address] [place] [address] Care Team Providers Care Process Safety Management Engineer Name Role Phone Luke Jacome Primary Care Provider [phone] Allergies Active Allergy Reactions Criticality Noted Date [...] 98 01/16/2018 8:55 AM EDT Temperature 35.2 C (95.4 F) 11/09/2021 8:57 AM EST Respiratory Rate 16 01/16/2018 8:55 AM EDT [...] COVID-19 Vaccine ( - season) 2024 05/07/2021 Preventative Health Evaluation 07/14/2024 07/14/2023, 11/09/2021, 11/05/2020, Additional history exists Cervical Cancer Screening (Pap Smear) 11/09/2024 11/09/2021, 11/05/2020, 09/26/2015 Influenza Vaccine (#1) 2025 BMI Counseling 08/01/2025 08/01/2024, 04/0 10/2023, 07/14/2023, Additional history exists Pneumococcal Vaccine Aged Out No long er eligible based on patient's age to complete this topic RSV Ped < 20 months Aged Out No longe r eligible based on patient's age to complete this topic Care Teams Process Safety Management Engineer Relationship Specialty Start Date End Date Luke Jacome [address] [facility] [place] [address] PCP - General Family Medicine 07/14/23
--- OUTSIDE RECORDS SUMMARY | 2025-05-24 07:51 | XMS_ITS | Referral Summary ---
Author Organization [facility] Address [address] [place] [address] Care Team Providers Care Broth Mixer Name Role Phone Luke Jacome Primary Care Provider [phone] Encounters Date Type Department Care Team Description 03/26/2025 8:31 AM EDT - 03/26/2025 2:52 PM EDT Emergency [facility] Emergency Department [address] [place] [address] Daniel Beltran MD Kidney stone (Primary Dx) Discharge Disposition: Home or Self Care () from Last 3 Months Allergies Active Allergy Reactions Criticality Noted Date Comments Amoxicillin Rash 03/26/2025 Hydromorphone Respiratory Distress High 03/26/2025 Tramadol Itching 03/26/2025 Medications tamsulosin (FLOMAX) 0.4 mg capsule Take 1 capsule (0.4 mg total) by mouth once a day. 7 capsule 03/26/2025 Active Social History Tobacco Use Types Packs/Day Years Used Date Smoking Tobacco: Never Smokeless Tobacco: Never Tobacco Cessation:Counseling Given: Not Answered Alcohol Use Standard Drinks/Week Comments Yes 0 (1 standard drink = 0.6 oz pur e alcohol) social Comments No Sex and Gender Information Value Date Recorded Sex Assigned at Female 03/26/2025 7:20 AM EDT Legal Sex Female 5:57 PM EDT Gender Identity Not on file Sexual Orientation Not on file Last Filed Vital Signs Vital Sign Reading Time Taken Comments Blood Pressure 124/84 03/26/2025 8:26 AM EDT Pulse 76 03/26/2025 8:26 AM EDT Temperature 36.1 C (97 F) 03/26/2025 8:26 AM EDT Respiratory Rate 20 03/26/2025 8:26 AM EDT Oxygen Saturation 96% 03/26/2025 8:26 AM EDT Inhaled Oxygen Concentration - - Weight 102.1 kg (225 lb) 03/26/2025 8:26 AM EDT Height 167.6 cm (5' 6 ) 03/26/2025 8:26 AM EDT Body Mass Index 36.32 03/26/2025 8:26 AM EDT Plan of Treatment Not on file Procedures * Due to [place] [employer] law, this organization might not be sharing negative HIV tests. Procedure Name Priority Date/Time Associated Diagnosis Comments CT ABDOMEN PELVIS W CONTRAST STAT 03/26/2025 11:32 AM EDT MICROSCOPIC URINALYSIS ONLY Routine 03/26/2025 10:50 AM EDT HCG QUALITATIVE, URINE STAT 10:50 AM EDT UA/CULTURE REFLEX Routine 03/26/2025 10: 50 AM EDT URINALYSIS W/REFLEX TO MICROSCOPIC & CULTURE Routine 03/26/2025 10:50 AM EDT LIPASE STAT 03/26/2025 10:47 AM EDT COMPREHENSIVE METABOLIC PANEL STAT 03/26/2025 10:47 AM EDT CBC AUTO DIFFERENTIAL STAT 03/26/2025 9:33 AM EDT from Last 3 Months Results * Due to [place] [employer] law, this organization might not be sharing negative HIV tests. * CT Abdomen Pelvis with Contrast (03/26/2025 11:32 AM EDT) Anatomical Region Laterality Modality Body Computed Tomogra phy 03/26/2025 12:4 1 PM EDT Impressions 03/26/2025 2:26 PM EDT Obstructing 3 mm calculus within the distal right ureter resulting in mild hydroureteronephrosis. ITrip, have reviewed the examination and concur with the findings as reported or so edited. Trainee: Ravinder Madrid If this radiology report contains a blank impression section, it is an incomplete radiology report. Please contact the interpreting radiologist or applicable radiology division as soon as possible to obtain the completed interpretation. Workstation ID: [id number] Up-to-date CT equipment and radiation dose reduction techniques were employed. CTDIvol: 18.9 mGy. DLP: 947 mGy-cm. Narrative 03/26/2025 2:26 PM EDT COMPARISON: None available. FINDINGS: LOWER THORAX: The visualized lung bases are clear. HEPATOBILIARY: No focal hepatic lesions. Patent portal and hepatic veins. Cholelithiasis without acute cholecystitis. No biliary ductal dilatation. SPLEEN: No splenomegaly. PANCREAS: No focal masses or ductal dilatation. ADRENAL GLANDS: No adrenal nodules. KIDNEYS/URETERS: Delayed right nephrogram with an obstructing 3 mm calculus in the distal right ureter resulting in mild hydroureteronephrosis and moderate perinephric edema. The left kidney is unremarkable. No solid mass lesions. GI TRACT: No distention or wall thickening. Normal appendix. PERITONEUM/RETROPERITONEUM: No ascites or free air. LYMPH NODES: No lymphadenopathy. VESSELS: The aortoiliac vasculature is patent and normal in caliber. PELVIC ORGANS/BLADDER: Urinary bladder is partially distended and unremarkable. The uterus is unremarkable. Right adnexal cyst, measuring 3.9 cm, is within physiological range in this age group. The left adnexa is unremarkable. BONES AND SOFT TISSUES: No acute osseous abnormality. Multilevel degenerative changes in the thoracolumbar spine. Resulting Agency Comment [id number] Procedure Note Trip Collazo MD - 03/26/2025 COMPARISON: None available. FINDINGS: LOWER THORAX: The visualized lung bases are clear. HEPATOBILIARY: No focal hepatic lesions. Patent portal and hepatic veins.Cholelithiasis without acute cholecystitis. No biliary ductaldilatation. SPLEEN: No splenomegaly. PANCREAS: No focal masses or ductal dilatation. ADRENAL GLANDS: No adrenal nodules. KIDNEYS/URETERS: Delayed right nephrogram with an obstructing 3 mmcalculus in the distal right ureter resulting in mildhydroureteronephrosis and moderate perinephric edema. The left kidney isunremarkable. No solid mass lesions. GI TRACT: No distention or wall thickening. Normal appendix. PERITONEUM/RETROPERITONEUM: No ascites or free air. LYMPH NODES: No lymphadenopathy. VESSELS: The aortoiliac vasculature is patent and normal in caliber. PELVIC ORGANS/BLADDER: Urinary bladder is partially distended andunremarkable. The uterus is unremarkable. Right adnexal cyst, measuring3.9 cm, is within physiological range in this age group. The left adnexais unremarkable. BONES AND SOFT TISSUES: No acute osseous abnormality. Multileveldegenerative changes in the thoracolumbar spine. IMPRESSION: Obstructing 3 mm calculus within the distal right ureter resulting in mildhydroureteronephrosis. I, Trip Collazo, have reviewed the examination and concur with thefindings as reported or so edited. Trainee: Ravinder Madrid If this radiology report contains a blank impression section, it is anincomplete radiology report. Please contact the interpreting radiologistor applicable radiology division as soon as possible to obtain thecompleted interpretation. Workstation ID: [id number] Up-to-date CT equipment and radiation dose reduction techniques wereemployed. CTDIvol: 18.9 mGy. DLP: 947 mGy-cm. Shahnaz [place] [facility] [place]ED[place] Final Resul t * (ABNORMAL) Microscopic Urinalysis Only (03/26/2025 10:50 AM EDT) RBC, Urine 50+(A) None Seen, 0-2 /HPF 03/26/2025 11:28 AM EDT [facility] WBC, Urine 0-2 None Seen, 0-2 /HPF 03/26/2025 11:28 AM EDT [facility] Squamous Epithelial Cells, Urine 0-2 /HPF 03/26/2025 11:28 AM EDT [facility] Bacteria, Urine Occasional (A) None Seen /HPF 03/26/2025 11:28 AM EDT [facility] Urine Urine specimen collection, clean catch / Unknown Non-Blood Collection / Unknown 03/26/2025 10:50 AM EDT 03/26/2025 11:12 AM EDT us Shahnaz DUTTON [facility] URINE ORDERABLES Final Re sult [facility] [address] [place] [address], [place] [phone] * (ABNORMAL) Urinalysis W/Reflex to Microscopic & Culture (03/26/2025 10:50 AM EDT) Color, Urine Yellow Yellow 03/26/2025 11:13 AM EDT [facility] Clarity, Urine Clear Clear 03/26/2025 11:13 AM EDT [facility] Specific [place], Urine 1.020 1.005 - 1.030 03/26/2025 11:13 AM EDT [facility] pH, Urine 6.0 5.0 - 8.0 03/26/2025 11:13 AM EDT [facility] Protein, Urine Trace(A) Negative mg/dL 03/26/2025 11:13 AM EDT [facility] Glucose, Urine Negative Negative mg/dL 03/26/2025 11:13 AM EDT [facility] Ketones, Urine Negative Negative mg/dL 03/26/2025 11:13 AM EDT [facility] Bilirubin, Urine Negative Negative 03/26/2025 11:13 AM EDT [facility] Blood, Urine Large(A) Negative 03/26/2025 11:13 AM EDT [facility] Nitrite, Urine Negative Negative 03/26/2025 11:13 AM EDT [facility] Urobilinogen, Urine 0.2 0.2 - 1.0 E.U./dL 03/26/2025 11:13 AM EDT [facility] Leukocyte Esterase, Urine Negative Negative 03/26/2025 11:13 AM EDT [facility] Urine Urine specimen collection, clean catch / Unknown Non-Blood Collection / Unknown 03/26/2025 10:50 AM EDT 03/26/2025 10:51 AM EDT Narrative [facility] - 03/26/2025 11:13 AM EDT Some urinalysis results will not meet the criteria for reflex urine culture although certain urine values may be abnormal. Additional testing can be ordered by the provider if clinically warranted. Shahnaz Alarcon PA LAB URINE ORDERABLES Final Re sult Performing Organization Address [facility] Co de Phone Number [facility] [address] [place] [address], [place] [phone] * HCG Qualitative, Urine (03/26/2025 10:50 AM EDT) HCG Qualitative, Urine Negative 03/26/2025 11:09 AM EDT [facility] Comment: hCG may be negative in early . Suggest repeat testing in 2-4 days if clinically indicated. The results of this test should be interpreted with the patient's clinical presentation. Urine Urine specimen collection, clean catch / Unknown Non-Blood Collection / Unknown 03/26/2025 10:50 AM EDT 03/26/2025 10:51 AM EDT Shahnaz Alarcon PA LAB URINE ORDERABLES Final Re sult Performing Organization Address [facility] Co de Phone Number [facility] [address] [place] [address], [place] [phone] * Lipase (03/26/2025 10:47 AM EDT) Lipase 40 13 - 60 U/L 03/26/2025 11:16 AM EDT [facility] Blood Structure of peripheral vein / Unknown Venipuncture / Unknown 03/26/2025 10:47 AM EDT 03/26/2025 10:50 AM EDT Shahnaz Alarcon PA LAB BLOOD ORDERABLES Final Re sult Performing Organization Address [facility] Co de Phone Number [facility] [address] [place] [address], [place] [phone] * (ABNORMAL) CMP - Comprehensive Metabolic Panel (03/26/2025 10:47 AM EDT) NA 136 136 - 145 mmol/L 03/26/2025 11:16 AM EDT [facility] K 4.4 3.5 - 5.1 mmol/L 03/26/2025 11:16 AM EDT [facility] Cl 102 98 - 109 mmol/L 03/26/2025 11:16 AM EDT [facility] CO2 21(L) 22 - 32 mmol/L 03/26/2025 11:16 AM EDT [facility] Anion Gap 17 >=0 03/26/2025 11:16 AM EDT [facility] Glucose 112(H) 60 - 99 mg/dL 03/26/2025 11:16 AM EDT [facility] Creatinine 0.92 0.50 - 1.12 mg/dL 03/26/2025 11:16 AM EDT [facility] Calcium 9.8 8.4 - 10.4 mg/dL 03/26/2025 11:16 AM EDT [facility] Total Protein 7.4 6.6 - 8.7 g/dL 03/26/2025 11:16 AM EDT [facility] Albumin 4.2 3.5 - 5.0 g/dL 03/26/2025 11:16 AM EDT [facility] Bilirubin, Total 0.2 0.2 - 1.2 mg/dL 03/26/2025 11:16 AM EDT [facility] Alkaline Phosphatase 25(L) 40 - 129 U/L 03/26/2025 11:16 AM EDT [facility] AST 21 0 - 33 U/L 03/26/2025 11:16 AM EDT [facility] ALT 14 <=33 U/L 03/26/2025 11:16 AM EDT [facility] BUN 14 6 - 20 mg/dL 03/26/2025 11:16 AM EDT [facility] eGFR 80 >=60 mL/min/1. 73m2 03/26/2025 11:16 AM EDT [facility] Comment:The estimated glomer ular filtration rate (eGFR) is calculated using a new formula developed by the NKF-ASN task force to eliminate race-based correction factors. The new formula uses serum/plasma creatinine, age, and gender to determine eGFR. A value below 60mls/min might indicate kidney disease and will be flagged. For additional information, see Ney et al, Am J Kidney Dis. 2021;79(2):268- 288, A Unifying Approach for GFR estimation: Recommendations of the NKF-ASN Task Force on Reassessing the Inclusion of Race in Diagnosing Kidney Disease . Globulin, Total 3.2 2.1 - 4.2 g/dL 03/26/2025 11:16 AM EDT [facility] A/G Ratio 1.3(L) 1.5 - 3.0 03/26/2025 11:16 AM EDT [facility] Blood Structure of peripheral vein / Unknown Venipuncture / Unknown 03/26/2025 10:47 AM EDT 03/26/2025 10:50 AM EDT us Shahnaz [facility]TON [facility] BLOOD ORDERABLES Final Re sult [facility] [address] [place] [address] [address] [place] [address], * (ABNORMAL) CBC Auto Differential (03/26/2025 9:33 AM EDT) WBC 13.7(H) 4.8 - 10.8 10*3/uL 03/26/2025 9:40 AM EDT [facility] RBC 4.48 4.20 - 5.40 10*6/uL 03/26/2025 9:40 AM EDT [facility] Hemoglobin 13.6 11.7 - 15.5 g/dL 03/26/2025 9:40 AM EDT [facility] Hematocrit 37.7 35.7 - 45.8 % 03/26/2025 9:40 AM EDT [facility] MCV 84.2 81.0 - 99.0 fL 03/26/2025 9:40 AM EDT [facility] MCH 30.4 26.0 - 34.0 pg 03/26/2025 9:40 AM EDT [facility] MCHC 36.1(H) 31.0 - 36.0 g/dL 03/26/2025 9:40 AM EDT [facility] RDW 13.1 12.0 - 15.0 % 03/26/2025 9:40 AM EDT [facility] RDW Standard Deviation 39.2 36.4 - 46.3 fL 03/26/2025 9:40 AM EDT [facility] Platelets 291 140 - 440 10*3/uL 03/26/2025 9:40 AM EDT [facility] MPV 9.0(L) 9.4 - 12.3 fL 03/26/2025 9:40 AM EDT [facility] Neutrophil % 72.4 50.0 - 75.0 % 03/26/2025 9:40 AM EDT [facility] Immature Grans % 0.7 0.0 - 0.9 % 03/26/2025 9:40 AM EDT [facility] Lymphocyte % 17.8(L) 20.0 - 44.0 % 03/26/2025 9:40 AM EDT [facility] Monocyte % 8.0 0.0 - 14.0 % 03/26/2025 9:40 AM EDT [facility] Eosinophil % 0.6 0.0 - 5.0 % 03/26/2025 9:40 AM EDT [facility] Basophil % 0.5 0.0 - 2.0 % 03/26/2025 9:40 AM EDT [facility] Neutrophil # 9.92(H) 1.80 - 7.70 10*3/uL 03/26/2025 9:40 AM EDT [facility] Immature Grans # 0.09(H) 0.00 - 0.03 10*3/uL 03/26/2025 9:40 AM EDT [facility] Lymphocyte # 2.40 1.00 - 4.75 10*3/uL 03/26/2025 9:40 AM EDT [facility] Monocyte # 1.10(H) 0.00 - 0.60 10*3/uL 03/26/2025 9:40 AM EDT [facility] Eosinophil # 0.10 0.00 - 0.80 10*3/uL 03/26/2025 9:40 AM EDT [facility] Basophil # 0.10 0.00 - 0.20 10*3/uL 03/26/2025 9:40 AM EDT [facility] nRBC % 0.0 0 - 0 /100 WBCs 03/26/2025 9:40 AM EDT [facility] nRBC # <0.01 0.00 - 0.13 10*3/uL 03/26/2025 9:40 AM EDT [facility] Blood Structure of peripheral vein / Unknown Venipuncture / Unknown 03/26/2025 9:33 AM EDT 03/26/2025 9:33 AM EDT us Shahnaz [facility]TON LAB BLOOD ORDERABLES Final Re sult Performing Organization Address City/State/[facility] Co de Phone Number [facility] [address] [place] [address], from Last 3 Months Insurance [facility] [employer] Care Teams Broth Mixer Relationship Specialty Start Date End Date Luke Jacome [address] [place] [address] PCP - General 03/26/25
--- OUTSIDE RECORDS SUMMARY | 2025-05-24 07:51 | XMS_ITS | Clinical Summary ---
Author Organization [facility] Address [address] [place] [address] Care Team Providers Care Garland Maker Name Role Phone Unknown Primary Care Provider [phone] Allergies Active Allergy Reactions Criticality Noted Date Comments Hydromorphone Hcl Shortness Of Breath High 8 Tramadol Itching Low 11/15/2017 Medications OMEprazole (PriLOSEC) 40 MG capsuleIndicatio ns:Acute nasopharyngitis, Pharyngitis, unspecified etiology Take 40 mg by mouth every morning before breakfast. Active fenofibrate (TRICOR) 48 MG tabletIndication s:Acute nasopharyngitis, Pharyngitis, unspecified etiology Take 145 mg by mouth daily. Active fluticasone (FloNASE) 50 mcg/spray nasal sprayIndications :Acute nasopharyngitis, Pharyngitis, unspecified etiology 1 spray into each nostril daily. Active cetirizine (ZyrTEC) 10 MG tablet Take 10 mg by mouth daily. Active amoxicillin-clav ulanate (AUGMENTIN) 875-125 MG per tabletIndication s:Acute non-recurrent frontal sinusitis Take 1 tablet by mouth 2 (two) times a day. 20 tablet 08/02/2018 Active Social History Tobacco Use Types Packs/Day Years Used Date Smoking Tobacco: Never Comments Unknown Sex and Gender Information Value Date Recorded Sex Assigned at Not on file Legal Sex Female 12:32 PM EDT Gender Identity Not on file Sexual Orientation Not on file Last Filed Vital Signs Vital Sign Reading Time Taken Comments Blood Pressure 135/91 08/02/2018 8:13 AM EDT Pulse 89 08/02/2018 8:13 AM EDT Temperature 36.4 C (97.5 F) 08/02/2018 8:13 AM EDT Respiratory Rate 16 08/02/2018 8:13 AM EDT Oxygen Saturation 99% 08/02/2018 8:13 AM EDT Inhaled Oxygen Concentration - - Weight 99.8 kg (220 lb) 08/02/2018 8:13 AM EDT Height 167.6 cm (5' 6 ) 08/02/2018 8:13 AM EDT Body Mass Index 35.51 08/02/2018 8:13 AM EDT Plan of Treatment Health Maintenance Due Date Last Done Comments Hepatitis C Virus Screening 1982 HIV Screening 1995 DTaP/Tdap/Td Vaccines (1 - Tdap) 2001 Hepatitis B Vaccines (1 of 3 - 19+ 3-dose series) 2001 Mammogram 2022 COVID-19 Vaccine ( - 2023-2 5 season) 2024 Pap Smear (Ages 21-65) 11/09/2024 , 11/05/2020 Influenza Vaccine 05/16/2025 HPV Vaccines Aged Out No longer eligi ble based on patient's age to complete this topic Pneumococcal Vaccine: Pediatric (0-5 Years) and At-Risk Patients (6 to 49 Years) Aged Out No longer eligible b ased on patient's age to complete this topic Procedures Procedure Name Priority Date/Time Associated Diagnosis Comments PAP W/AGE BASED SCREENING PROTOCOLS Routine 11/09/2021 9:30 AM EST from Last 3 Months or Most Recently Relevant to Health Maintenance Results * Pap w/Age Based Screening Protocols (11/09/2021 9:30 AM EST) Comment [facility] Comment: This order for age-based cervical cancer and STI screening follows ACOG guidelines(PB 168, 140, CAB159). See individual assays for performing site location. Clinical Information [facility] Comment:NO PREV PAPS AVAILAB LE LMP: [facility] Comment:11/09/21 Previous PAP: [facility] Comment:NONE GIVEN Previous Biopsy Ques [facility] Comment:NONE GIVEN Source: [facility] Comment:Cervix Statement of Adequacy: [facility] Comment: Satisfactory for evaluation. Endocervical/transformation zone component present. Interpretation/Res ult: [facility] Comment:Negative for intraep ithelial lesion or malignancy. Comment: [facility] Comment: This Pap test has been evaluated with computer assisted technology. Senior Manufacturing Test Engineer: Araseli [email or web address] Comment: YP, CT(ASCP) CT screening location: [place] [address] Comment [facility] Comment: EXPLANATORY NOTE: The Pap is a screening test for cervical cancer. It is not a diagnostic test and is subject to false negative and false positive results. It is most reliable when a satisfactory sample, regularly obtained, is submitted with relevant clinical findings and history, and when the Pap result is evaluated along with historic and current clinical information. Hpv Mrna [id number] Not Detected Not Detected [facility] Comment: Methodology: Warehouse Production Worker-Mediated Amplification This assay detects E6/E7 viral messenger RNA (mRNA) from 14 high-risk HPV types (16,18,31,33,35,39,45,51,52,56,58,59,66,68). The analytical performance characteristics of this assay have been determined by [employer] The modifications have not been cleared or approved by the FDA. This assay has been validated pursuant to the CLIA regulations and is used for clinical purposes. For additional information, please refer to http://education.MirDeneg/faq/XQY322s2 (This link if provided for information/ educational purposes only.) 11/09/2021 9:30 AM EST 11/10/2021 5:55 AM EST Narrative [facility] - 11/11/2021 2:41 PM EST Ordered by External Provider. [id number], GINA CESAR, us External Provider LAB AMB PATH/CYTO ORDERABLE S Final Result [facility] [address], [place] [address] from Last 3 Months or Most Recently Relevant to Health Maintenance Insurance [employer] Care Teams Garland Maker Relationship Specialty Start Date End Date Unknown Unknow Provider Address PCP - General 11/15/17
--- OUTSIDE RECORDS SUMMARY | 2025-05-24 07:52 | XMS_ITS | Clinical Summary ---
Author Organization [facility] Address [address] [place] [address] Care Team Providers Care Business Improvement Manager Name Role Phone Ranjith Ojeda MD Primary [...] 104 08/03/2023 9:55 AM EDT Temperature 36.5 C (97.7 F) 08/03/2023 9:55 AM EDT Respiratory Rate 17 08/03/2023 9:55 AM EDT [...] Adults 18 yrs or above (or HM Modifier)([facility]) 2000 Hepatitis C Virus Infection in Adolescents and Adults: Screening (or Modifier) ([facility]) 2000 [facility] Screening Reminder: Cecilia melton for all adults ([facility]) 2000 Tobacco Smoking Cessation: i n Adults excluding Women: Behavioral and Pharmacotherapy Interventions ([facility]) 2000 DTaP/Tdap/Td Vaccines ([facility]) (1 - Tdap) 2001 Cervical Cancer Screenin 1-65 yrs of age (or Modifier) 2003 Cervical Cancer Screening: P ap every 3 yrs pts age 21-65 2003 Cervical Cancer: Pap Screeni ng with Modifier timing ([facility]) 2003 Cervical Cancer: hrHPV alone or with cotesting Pap for Pts 30-65yrs screening every 5yrs ([facility]) 2003 COVID-19 Vaccine Screening: Initial Series and Booster Status ([facility]) (2 - 2023- season) 2024 05/07/2021 Flu Vaccination: Yearly for ages 18mos through 64 years (or Modifier)([facility]) 05/16/2025 Zoster/Shingles Vaccine Seri es Screening: Adults aged 18+ yrs (or HM Modifiers)([facility]) (1 of 2) 2032 Pneumococcal Vaccination Scr eening: Pts 0-19 & 19-49 yrs of age ([facility]) Aged Out No longer eligible b ased on patient's age to complete this topic Medical Devices Not on file Care Teams Business Improvement Manager Relationship Specialty Start Date End Date Skalski, Ranjith Dheeraj, MD [facility] OFFICE [address] [phone] PCP - [employer] 11/23/19
[2025-05-24 11:42] LABS: MANUAL DIFF FLAG NO
[2025-05-24 11:57] LABS: Hematocrit 40.9 % (37.0-47.0); Hemoglobin 13.7 g/dl (12.0-16.0); Imm Gran Abs Auto 0.03 X10*3/uL (0.00-0.03); Imm Gran Pct Auto 0.4 % (0.0-0.4); Lymphocytes Absolute Auto 3.4 X10*3/uL (1.2-4.9); Mean Corpuscular HGB Conc 33.5 g/dl (31.0-35.0); Mean Corpuscular Hemoglobin 30.0 pg (27.0-33.0); Mean Corpuscular Volume 89.7 fL (80.0-98.0); NRBC Abs Auto 0.000 X10*3/uL (0.0-0.012); NRBC Pct Auto 0.0 /100WBC (0.0-0.2); Platelet Count 354 X10*3/uL (160-400); Red Blood Count 4.56 X10*6/uL (4.20-5.50); White Blood Count 8.5 X10*3/uL (4.8-10.8)
[2025-05-24 12:13] LABS: Appearance Urine Clear; Glucose Urine UA Negative (Negative); PH 6.5 (5.0-9.0); Specific Gravity - Urine 1.010 (1.005-1.025); UMIC TRIGGER UACC YES
[2025-05-24 12:45] LABS: Parathyroid Hormone Intact 22.2 pg/mL (8.7-77.1)
[2025-05-24 12:47] LABS: Alanine Aminotransferase 15 U/L (0-31); Albumin Level 4.5 g/dL (3.5-5.0); Alkaline Phosphatase 22 U/L (39-117); Anion Gap 17 (12-20); Aspartate Amino Transferase 28 U/L (5-31); Blood Urea Nitrogen 14 mg/dL (9-16); Calcium 9.8 mg/dL (8.4-10.2); Carbon Dioxide 21 mmol/L (22-29); Chloride 101 mmol/L (96-108); Cholesterol 197 mg/dL (<200); Estimated Glomerular Filt Rate > 60; HDL Cholesterol 29 mg/dL (>40); Potassium 4.0 mmol/L (3.3-5.1); Sodium 135 mmol/L (135-145); Total Protein 7.5 g/dL (6.5-8.0); Triglycerides 850 mg/dL (<150)
[2025-05-24 12:59] LABS: Hemoglobin A1C 149.8269 umol/L; Total Hemoglobin (HGBA1C) 3595.1951 umol/L
[2025-05-28 16:37] LABS: Calcium, Ionized 4.9 mg/dL (4.7-5.5)
== END 2025-05-24 07:50 | disposition home or self-care (01) ==
LOC: HO.HMGCLDS 07:49
PROVIDERS: PCP Nurse Practitioner Family; Visit Provider Nurse Practitioner Family
DX: E11.9 Type 2 diabetes mellitus without complications (principal); E83.52 Hypercalcemia
CPT/HCPCS: 36415; 80053; 80061; 81001; 82330; 83036; 83970; 84443; 85025

== ENCOUNTER 2025-05-28 07:00 | Outpatient (AMB) | payer OTHER, SELFPAY ==
--- OUTSIDE RECORDS SUMMARY | 2024-08-01 08:05 | XMS_ITS | Encounter Summary ---
Author Organization [facility] Address [address] [place] [address] Care Team Providers Care Motor Vehicle Examiner Name Role Phone Luke Jacome NP Primary Care Provider Encounter Details Date Type Department Care Team (Late st Contact Info) Description 08/01/2024 8:05 AM EDT Hospital Encounter TH HISTORIC ENCOUNTERS [facility] ONLY Noemi Bobo, BHAVYA [address] [place] [address] Social History Tobacco Use Types Packs/Day Years Used Date Smoking Tobacco: Former Cigarettes Q uit: 10/16/2001 Smokeless Tobacco: Never Alcohol Use Standard Drinks/Week Comments Yes 0 (1 standard drink = 0.6 oz pur e alcohol) Rare Comments No Sex and Gender Information Value Date Recorded Sex Assigned at Not on file Legal Sex Female 5:02 AM EST Gender Identity Not on file Sexual Orientation Not on file documented as of this encounter Last Filed Vital Signs Vital Sign Reading Time Taken Comments Blood Pressure 112/78 08/01/2024 8:15 AM EDT Pulse - - Temperature - - Respiratory Rate - - Oxygen Saturation - - Inhaled Oxygen Concentration - - Weight 101 kg (223 lb) 08/01/2024 8:08 AM EDT Height 165.1 cm (5' 5 ) 08/01/2024 8:08 AM EDT Body Mass Index 37.11 08/01/2024 8:08 AM EDT documented in this encounter Progress Notes * Noemi Bobo NP - 08/01/2024 8:00 AM EDT Laura Crocker is a 43 y.o.. Chief Complaint Patient presents with ??? Office Visit Pt here for mewd check up ?? Laura is a 43 yo G0 with LMP 07/18/24 Doing well on OC bleeding regularly. Not sexually active. Using valtrex as needed with very infrequent need. Has enough at home. Reports good BP reading at home, got delayed in traffic on the way today. Allergies: Allergies Allergen Reactions ??? Hydromorphone Anaphylaxis ??? Amoxicillin-Pot Clavulanate Hives ??? Seasonal ??? Tramadol Itching ??? Latex Rash Current Meds: Current Outpatient Medications Medication Sig Dispense Refill ??? cetirizine (ZYRTEC) 10 MG tablet Take 1 tablet (10 mg total) by mouth daily. ??? fenofibrate (TRICOR) tablet 145 mg Take 1 tablet (145 mg total) by mouth daily. 90 tablet 3 ??? fluvastatin (LESCOL) 40 MG capsule ??? losartan (COZAAR) tablet 25 mg Take 1 tablet (25 mg total) by mouth daily. ??? metFORMIN (GLUCOPHAGE-XR) ER 24 hr tablet 500 mg ??? Multiple Vitamin (MULTIVITAMIN ADULT PO) Take by mouth. ??? norethindrone-ethinyl estradiol (JUNE11/04) 1-20 MG-MCG per tablet Take 1 tablet by mouth daily. 84 tablet 1 ??? omega-3 acid ethyl esters (LOVAZA) capsule 1 g ??? spironolactone (ALDACTONE) tablet 50 mg ??? UNABLE TO FIND Pre and Probiotic ??? valACYclovir (VALTREX) 1000 MG tablet WHEN SYMPTOMS BEGIN TAKE 2 TABLETS BY MOUTH EVERY 12 HOURS FOR ONE DAY (4 TABLETS TOTAL PER EPISODE) No current facility-administered medications for this visit. Active Problems: Patient Active Problem List Diagnosis SNOMED CT(R) ??? Hyperlipidemia HYPERLIPIDEMIA ??? GERD (gastroesophageal reflux disease) GASTROESOPHAGEAL REFLUX DISEASE ??? Allergic rhinitis ALLERGIC RHINITIS ??? Precordial pain PRECORDIAL PAIN ??? Palpitations PALPITATIONS ??? Syncope and collapse SYNCOPE AND COLLAPSE ??? PCOS (polycystic ovarian syndrome) POLYCYSTIC OVARY SYNDROME ??? Encounter for gynecological examination with abnormal finding PATIENT ENCOUNTER STATUS ??? Hirsutism HIRSUTISM ??? Cervical cancer screening CANCER CERVIX SCREENING STATUS ??? Class 2 severe obesity due to excess calories with serious comorbidity and body mass index (BMI) of 37.0 to 37.9 in adult (HCC) SEVERE OBESITY ??? Menorrhagia with irregular cycle MENOMETRORRHAGIA ??? Surveillance of contraceptive pill ORAL CONTRACEPTION Vital Signs: Vitals: 08/01/24 0808 08/01/24 0815 BP: 129/87 112/78 Weight: 101.2 kg (223 lb) Height: 5' 5 (1.651 m) Body mass index is 37.11 kg/m??. BMI Screening: patient's BMI was abnormal. Follow up plan includes: counseled on proper nutrition and counseled on physical exercise. History: OB History Para Term AB Living 0 0 0 0 0 0 SAB IAB Ectopic Molar Multiple Live Births 0 0 0 0 0 0 Past Medical History: Diagnosis Date ??? Allergic ??? Chest pain ??? Dyspnea on effort ??? GERD (gastroesophageal reflux disease) ??? High cholesterol ??? Obesity ??? Palpitation Past Surgical History: Procedure Laterality Date FRACTURE SURGERY Left 04/2012 & 11/2012 ORIF left leg repair ??? WISDOM TOOTH EXTRACTION Family History Problem Relation Age of Onset ??? Colon cancer Paternal Grandmother ??? Hypertension Father ??? Diabetes Father ??? Hyperlipidemia Father ??? Alcohol abuse Brother ??? Seizures Brother ??? Depression Brother ??? Mental illness Sister Social History Socioeconomic History ??? Marital status: Single Spouse name: Not on file ??? Number of children: Not on file ??? Years of education: Not on file ??? Highest education level: Not on file Occupational History ??? Not on file Tobacco Use ??? Smoking status: Former Years: .5 Types: Cigarettes Quit date: 10/16/2001 Years since quittin.8 Passive exposure: Never ??? Smokeless tobacco: Never Vaping Use ??? Vaping Use: Never used Substance and Sexual Activity ??? Alcohol use: Yes Alcohol/week: 0.0 standard drinks of alcohol Comment: rare ??? Drug use: No ??? Sexual activity: Yes control/protection: OCP Comment: Slynd Other Topics Concern ??? Not on file Social History Narrative ??? Not on file Social Determinants of Health Financial Resource Strain: Not on file Food Insecurity: Not on file Transportation Needs: Not on file Social Connections: Not on file Housing Stability: Not on file Review of Systems Constitutional: Negative. HENT: Negative. Eyes: Negative. Respiratory: Negative. Cardiovascular: Negative. Gastrointestinal: Negative. Endocrine: Negative. Breast: Normal Breast. Genitourinary: Negative. Musculoskeletal: Negative. Skin: Negative. Allergic/Immunologic: Negative. Neurological: Negative. Hematological: Negative. Psychiatric/Behavioral: Negative. Physical Exam Vitals and nursing note reviewed. Constitutional: General: She is not in acute distress. Appearance: Normal appearance. She is obese. She is not ill-appearing, toxic- appearing or diaphoretic. HENT: Head: Normocephalic and atraumatic. Eyes: General: Right eye: No discharge. Left eye: No discharge. Pulmonary: Effort: Pulmonary effort is normal. Musculoskeletal: General: Normal range of motion. Cervical back: Normal range of motion and neck supple. Skin: General: Skin is warm and dry. Neurological: General: No focal deficit present. Mental Status: She is alert and oriented to person, place, and time. Psychiatric: Mood and Affect: Mood normal. Behavior: Behavior normal. Thought Content: Thought content normal. Judgment: Judgment normal. Assessment/Plan: Laura was seen today for office visit. Diagnoses and all orders for this visit: Surveillance of contraceptive pill Menorrhagia with irregular cycle - norethindrone-ethinyl estradiol (11/04) 1-20 MG-MCG per tablet; Take 1 tablet by mouth daily. Class 2 severe obesity due to excess calories with serious comorbidity and body mass index (BMI) of37.0 to 37.9 in adult (HCC) PCOS (polycystic ovarian syndrome) Hirsutism Orders: No orders of the defined types were placed in this encounter. medical records reviewed and updated medication list reviewed and updated Oral contraceptive for cycle control and to help with hormonal imbalance due to polycystic ovarian syndrome alongside with her treatment by her PCP with metformin. Reports doing well wants to continue. Timely daily use of oral contraceptive advised. Call the office if you experience any of the following while on hormonal contraceptive as they may indicate a serious medical condition: Abdominal pain; Chest pain or difficulty breathing; Headaches; Eye problems; Severe leg pain or swelling. Using hormonal contraceptives increases your risk of blood clots, heart attack or stroke, especially combined methods. Cigarette smoking or exposure to second hand smoke may increase your risk of blood clots, heart attack or stroke. Strongly encouraged to up here diet control and exercise Return in about 1 year (around 08/01/2025) for Annual physical. Noemi Bobo DNP,[employer] DEVELOPER documented in this encounter Plan of Treatment Upcoming Encounters Date Type Department Care Team (Late st Contact Info) Description 08/07/2025 9:30 AM EDT Office Visit OBGYN - [facility] [address] [place] [id number] Noemi Bobo NP [address] [place] [address] [place] [address] documented as of this encounter Visit Diagnoses Not on filedocumented in this encounter Care Teams Motor Vehicle Examiner Relationship Specialty Start Date End Date Luke Jacome NP [address], [place] PCP - General 07/14/23 documented as of this encounter
--- OUTSIDE RECORDS SUMMARY | 2025-05-28 07:03 | XMS_ITS | Clinical Summary ---
Author Organization [facility] Address [address] [place] [address] Care Team Providers Care Customer Service Analyst Name Role Phone Unknown Primary Care Provider [...] Screening Protocols (11/09/2021 9:30 AM EST) Comment [facility] Comment: This order for age-based cervical cancer and STI screening follows ACOG guidelines(PB 168, 140, QZU166). See individual assays for performing site location. Clinical Information [facility] Comment:NO PREV PAPS AVAILAB LE LMP: [facility] Comment:11/09/21 Previous PAP: [facility] Comment:NONE GIVEN Previous Biopsy Ques [employer] Comment:NONE GIVEN Source: [facility] Comment:Cervix Statement of Adequacy: [facility] Comment: Satisfactory for evaluation. Endocervical/transformation zone component present. Interpretation/Res ult: [facility] Comment:Negative for intraep ithelial lesion or malignancy. Comment: [facility] Comment: This Pap test has been evaluated with computer assisted technology. Equine Science Instructor: Araseli Shozu Comment: YP, CT(ASCP) CT screening location: [place] [address] Comment [facility] Comment: EXPLANATORY NOTE: The Pap is a [...] Hpv Mrna E6E7 Not Detected Not Detected [facility] Comment: Methodology: Computer Information Science Professor-Mediated Amplification This assay detects E6/E7 viral messenger RNA (mRNA) from 14 high-risk HPV types (16,18,31,33,35,39,45,51,52,56,58,59,66,68). The analytical performance characteristics of this assay have been determined by [employer]. The modifications have not been cleared or approved by the FDA. This assay has been validated pursuant to the CLIA regulations and is used for clinical purposes. For additional information, please refer to http://education.[employer]/faq/HDJ144t4 (This link if provided for information/ educational purposes only.) 11/09/2021 9:30 AM EST 11/10/2021 5:55 AM EST Narrative [facility] - 11/11/2021 2:41 PM EST Ordered by External Provider. [id number], GINA CESAR, us External Provider LAB AMB PATH/CYTO ORDERABLE S Final Result [facility] [address], [place] [address] from Last 3 Months or Most Recently Relevant to Health Maintenance Insurance [employer] HMO Care Teams Customer Service Analyst Relationship Specialty Start Date End Date Unknown Unknow Provider Address PCP - General 11/15/17
--- OUTSIDE RECORDS SUMMARY | 2025-05-28 07:03 | XMS_ITS | Clinical Summary ---
Author Organization [facility] Address [address] [place] [address] Care Team Providers Care Employment Adjudicator Name Role Phone Luke Jacome Primary Care Provider [phone] Allergies Active Allergy Reactions Criticality Noted Date [...] age to complete this topic Care Teams Employment Adjudicator Relationship Specialty Start Date End Date Luke Jacome [address] [facility] [place] [address] PCP - General Family Medicine 07/14/23
--- OUTSIDE RECORDS SUMMARY | 2025-05-28 07:03 | XMS_ITS | Referral Summary ---
Author Organization [facility] Address [address] [place] [address] Care Team Providers Care Engineered Wood Designer Name Role Phone Luke Jacome Primary Care Provider [phone] Encounters Date Type Department Care Team Description 03/26/2025 8:31 AM EDT - 03/26/2025 2:52 PM EDT Emergency [facility] Emergency Department [address] [place] [address] Daniel Beltran MD Kidney stone (Primary Dx) [...] Not on file Procedures * Due to [place] Girls Guide To law, this organization might not be sharing [...] Last 3 Months Results * Due to [place] Girls Guide To law, this organization might not be sharing [...] to obtain the completed interpretation. Workstation ID: [id number] Up-to-date CT equipment and radiation dose reduction [...] in the thoracolumbar spine. Resulting Agency Comment [id number] Procedure Note Trip Collazo MD - 03/26/2025 [...] possible to obtain thecompleted interpretation. Workstation ID: [id number] Up-to-date CT equipment and radiation dose reduction techniques wereemployed. CTDIvol: 18.9 mGy. DLP: 947 mGy-cm. Shahnaz [place] [facility] [place]ED[place] Final Resul t * (ABNORMAL) Microscopic Urinalysis Only (03/26/2025 10:50 AM EDT) RBC, Urine 50+(A) None Seen, 0-2 /HPF 03/26/2025 11:28 AM EDT [facility] WBC, Urine 0-2 None Seen, 0-2 /HPF 03/26/2025 11:28 AM EDT [facility] Squamous Epithelial Cells, Urine 0-2 /HPF 03/26/2025 11:28 AM EDT [facility] Bacteria, Urine Occasional (A) None Seen /HPF 03/26/2025 11:28 AM EDT [facility] Urine Urine specimen collection, clean catch / Unknown Non-Blood Collection / Unknown 03/26/2025 10:50 AM EDT 03/26/2025 11:12 AM EDT us Shahnaz DUTTON [facility] URINE ORDERABLES Final Re sult [facility] [address] [place] [address], [place] [phone] * (ABNORMAL) Urinalysis W/Reflex to Microscopic & Culture (03/26/2025 10:50 AM EDT) Color, Urine Yellow Yellow 03/26/2025 11:13 AM EDT [facility] Clarity, Urine Clear Clear 03/26/2025 11:13 AM EDT [facility] Specific [place], Urine 1.020 1.005 - 1.030 03/26/2025 11:13 AM EDT [facility] pH, Urine 6.0 5.0 - 8.0 03/26/2025 11:13 AM EDT [facility] Protein, Urine Trace(A) Negative mg/dL 03/26/2025 11:13 AM EDT [facility] Glucose, Urine Negative Negative mg/dL 03/26/2025 11:13 AM EDT [facility] Ketones, Urine Negative Negative mg/dL 03/26/2025 11:13 AM EDT [facility] Bilirubin, Urine Negative Negative 03/26/2025 11:13 AM EDT [facility] Blood, Urine Large(A) Negative 03/26/2025 11:13 AM EDT [facility] Nitrite, Urine Negative Negative 03/26/2025 11:13 AM EDT [facility] Urobilinogen, Urine 0.2 0.2 - 1.0 E.U./dL 03/26/2025 11:13 AM EDT [facility] Leukocyte Esterase, Urine Negative Negative 03/26/2025 11:13 AM EDT [facility] Urine Urine specimen collection, clean catch / Unknown Non-Blood Collection / Unknown 03/26/2025 10:50 AM EDT 03/26/2025 10:51 AM EDT Narrative [facility] - 03/26/2025 11:13 AM EDT Some urinalysis results will not meet the criteria for reflex urine culture although certain urine values may be abnormal. Additional testing can be ordered by the provider if clinically warranted. Shahnaz Alarcon PA LAB URINE ORDERABLES Final Re sult Performing Organization Address [facility] Co de Phone Number [facility] [address] [place] [address], [place] [phone] * HCG Qualitative, Urine (03/26/2025 10:50 AM EDT) HCG Qualitative, Urine Negative 03/26/2025 11:09 AM EDT [facility] Comment: hCG may be negative [...] ORDERABLES Final Re sult Performing Organization Address [facility] Co de Phone Number [facility] [address] [place] [address], [place] [phone] * Lipase (03/26/2025 10:47 AM EDT) Lipase 40 13 - 60 U/L 03/26/2025 11:16 AM EDT [facility] Blood Structure of peripheral vein / Unknown Venipuncture / Unknown 03/26/2025 10:47 AM EDT 03/26/2025 10:50 AM EDT Shahnaz Alarcon PA LAB BLOOD ORDERABLES Final Re sult Performing Organization Address [facility] Co de Phone Number [facility] [address] [place] [address], [place] [phone] * (ABNORMAL) CMP - Comprehensive Metabolic Panel (03/26/2025 10:47 AM EDT) NA 136 136 - 145 mmol/L 03/26/2025 11:16 AM EDT [facility] K 4.4 3.5 - 5.1 mmol/L 03/26/2025 11:16 AM EDT [facility] Cl 102 98 - 109 mmol/L 03/26/2025 11:16 AM EDT [facility] CO2 21(L) 22 - 32 mmol/L 03/26/2025 11:16 AM EDT [facility] Anion Gap 17 >=0 03/26/2025 11:16 AM EDT [facility] Glucose 112(H) 60 - 99 mg/dL 03/26/2025 11:16 AM EDT [facility] Creatinine 0.92 0.50 - 1.12 mg/dL 03/26/2025 11:16 AM EDT [facility] Calcium 9.8 8.4 - 10.4 mg/dL 03/26/2025 11:16 AM EDT [facility] Total Protein 7.4 6.6 - 8.7 g/dL 03/26/2025 11:16 AM EDT [facility] Albumin 4.2 3.5 - 5.0 g/dL 03/26/2025 11:16 AM EDT [facility] Bilirubin, Total 0.2 0.2 - 1.2 mg/dL 03/26/2025 11:16 AM EDT [facility] Alkaline Phosphatase 25(L) 40 - 129 U/L 03/26/2025 11:16 AM EDT [facility] AST 21 0 - 33 U/L 03/26/2025 11:16 AM EDT [facility] ALT 14 <=33 U/L 03/26/2025 11:16 AM EDT [facility] BUN 14 6 - 20 mg/dL 03/26/2025 11:16 AM EDT [facility] eGFR 80 >=60 mL/min/1. 73m2 03/26/2025 11:16 AM EDT [facility] Comment:The estimated glomer ular filtration [...] - 4.2 g/dL 03/26/2025 11:16 AM EDT [facility] A/G Ratio 1.3(L) 1.5 - 3.0 03/26/2025 11:16 AM EDT [facility] Blood Structure of peripheral vein / Unknown Venipuncture / Unknown 03/26/2025 10:47 AM EDT 03/26/2025 10:50 AM EDT us Shahnaz DUTTON LAB BLOOD ORDERABLES Final Re sult [facility] [address] [place] [address] [address] [place] [address], * (ABNORMAL) CBC Auto Differential (03/26/2025 9:33 AM EDT) WBC 13.7(H) 4.8 - 10.8 10*3/uL 03/26/2025 9:40 AM EDT [facility] RBC 4.48 4.20 - 5.40 10*6/uL 03/26/2025 9:40 AM EDT [facility] Hemoglobin 13.6 11.7 - 15.5 g/dL 03/26/2025 9:40 AM EDT [facility] Hematocrit 37.7 35.7 - 45.8 % 03/26/2025 9:40 AM EDT [facility] MCV 84.2 81.0 - 99.0 fL 03/26/2025 9:40 AM EDT [facility] MCH 30.4 26.0 - 34.0 pg 03/26/2025 9:40 AM EDT [facility] MCHC 36.1(H) 31.0 - 36.0 g/dL 03/26/2025 9:40 AM EDT [facility] RDW 13.1 12.0 - 15.0 % 03/26/2025 9:40 AM EDT [facility] RDW Standard Deviation 39.2 36.4 - 46.3 fL 03/26/2025 9:40 AM EDT [facility] Platelets 291 140 - 440 10*3/uL 03/26/2025 9:40 AM EDT [facility] MPV 9.0(L) 9.4 - 12.3 fL 03/26/2025 9:40 AM EDT [facility] Neutrophil % 72.4 50.0 - 75.0 % 03/26/2025 9:40 AM EDT [facility] Immature Grans % 0.7 0.0 - 0.9 % 03/26/2025 9:40 AM EDT [facility] Lymphocyte % 17.8(L) 20.0 - 44.0 % 03/26/2025 9:40 AM EDT [facility] Monocyte % 8.0 0.0 - 14.0 % 03/26/2025 9:40 AM EDT [facility] Eosinophil % 0.6 0.0 - 5.0 % 03/26/2025 9:40 AM EDT [facility] Basophil % 0.5 0.0 - 2.0 % 03/26/2025 9:40 AM EDT [facility] Neutrophil # 9.92(H) 1.80 - 7.70 10*3/uL 03/26/2025 9:40 AM EDT [facility] Immature Grans # 0.09(H) 0.00 - 0.03 10*3/uL 03/26/2025 9:40 AM EDT [facility] Lymphocyte # 2.40 1.00 - 4.75 10*3/uL 03/26/2025 9:40 AM EDT [facility] Monocyte # 1.10(H) 0.00 - 0.60 10*3/uL 03/26/2025 9:40 AM EDT [facility] Eosinophil # 0.10 0.00 - 0.80 10*3/uL 03/26/2025 9:40 AM EDT [facility] Basophil # 0.10 0.00 - 0.20 10*3/uL 03/26/2025 9:40 AM EDT [facility] nRBC % 0.0 0 - 0 /100 WBCs 03/26/2025 9:40 AM EDT [facility] nRBC # <0.01 0.00 - 0.13 10*3/uL 03/26/2025 9:40 AM EDT [facility] Blood Structure of peripheral vein / Unknown Venipuncture / Unknown 03/26/2025 9:33 AM EDT 03/26/2025 9:33 AM EDT us Shahnaz [facility] BLOOD ORDERABLES Final Re sult Performing Organization Address City/State/[facility] Co de Phone Number [facility] [address] [place] [address], from Last [address] [facility] [employer] Care Teams Engineered Wood Designer Relationship Specialty Start Date End Date Luke Jacome [address] [place] [address] PCP - General 03/26/25
--- OUTSIDE RECORDS SUMMARY | 2025-05-28 07:03 | XMS_ITS | Continuity of Care Document ---
Author Organization [facility] [address] [facility] [address] [place] [address] Phone [phone] Care Team Providers Care Trailer Body Assembler Name Role Phone Luke Jacome Care Team Information Carriage Dogger [phone] Problems Active Problems Provider Date Polycystic ovary [...] Medications SIG Qnty Indications Ordering Provider Date Hjxlqkjk9jm/0.5ML Solution Pen-Inject Use 1 Injection (0.5 ML) Under The Skin Every Week 2units E11.9 Brianne Solis M.D. 04/29/2024 Freestyle Yanet 2/Sensor/Flash Glucose Monitoring Pjrmgz6Eeteqb Misc 1 sensor to skin every fourteen days as directed dx: e11.9 6units E11.9 Brianne Solis M.D. 02/14/2024 E66.9 -20mg-mcg Tablets Unknown Ohoucgpxnqkdrl92hz Tablets Take 2 by reed th every day 30tabs [facility] Metformin HCL SV402lo Tablets ER 24HR 1 by mouth twice a day 180tabs [facility] Fluvastatin Fccnba64wu Capsules 1 cap by mouth every evening [facility] Stdcn-3-Olsp Ethyl Poeech8lq Capsules [facility] Hepbrauwmea320ee Tablets 1 by mouth every day 90tabs [facility] Losartan Dalmtoahh32rf Tablets 1 by mouth every day 90tabs [facility] Vital Signs Date Vital Result Comment 02/14/2024 [...] Free 1.20 ng/dL High 0.10-0.85 1 Test(s) 065206-Ftanv sterone, Total, LC/MS was developed and its [...] Reason for Referral Status Appt [facility] 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
--- NOTE | 2025-05-28 07:23 | A.OFFPC_ITS ---
Intake Visit Reasons: results Allergies hydromorphone (From Dilaudid) Allergy (Severe, Verified 05/28/25 07:28) Unresponsive amoxicillin Adverse Reaction (Mild, Verified 05/28/25 07:28) hives atorvastatin (From Lipitor) Adverse Reaction (Verified 05/28/25 07:28) muscle pain Medication List - Last Reconciled 05/28/25 by Luke Jacome [facility] blood sugar diagnostic (OneTouch Ultra Test strips) Test blood sugar once a day blood-glucose meter (RapidleaTouch Ultra2 Meter) As directed cetirizine (Zyrtec) 10 mg PO DAILY PRN fenofibrate nanocrystallized 145 mg PO DAILY fluvastatin 40 mg PO QPM lancets (OneTouch Delica Plus Lancet) Test blood sugar once a day losartan 25 mg PO DAILY metformin ER 500 mg PO BID multivitamin 1 tab PO DAILY omega-3 acid ethyl esters 2 caps PO BID 90 days phenylephrine HCl (Sudafed PE) 10 mg PO Q4-6H PRN spironolactone 50 mg PO DAILY tirzepatide (Mounjaro) 2.5 mg (0.5 mL) subcut QWEEK Tobacco use date assessed: 10/31/24 Dental Screening Dental Screen Date: 10/31/24 HPI results HPI Details History of Present Illness The patient is a 44-year-old female presenting with a follow-up visit to review laboratory results. She has a history of Diabetes Mellitus, with her most recent Hemoglobin A1c recorded at 6.0, indicating good glycemic control. She denies any symptoms of neuropathy, chest pain, or dyspnea, and is advised to maintain annual eye examinations as part of her diabetes management. The patient also has a history of hypertriglyceridemia, which has been a persistent issue. She is currently on fenofibrate, fluvastatin, and omega-3 fatty acids, which have shown some improvement in her triglyceride levels. Previously, her triglyceride levels improved significantly with the use of a GLP-1 agonist, and she will be restarted on Mounjaro at a low dose. Additionally, her alkaline phosphatase levels were noted to be low, prompting further laboratory investigations including zinc, magnesium, B12, and ceruloplasmin levels. The patient is actively trying to reduce her intake of takeout foods and is incorporating more exercise into her routine to aid in weight management. Review of Systems - Neurological: Denies neuropathy. - Cardiovascular: Denies chest pain. - Respiratory: Denies dyspnea. Plan The patient's diabetes management is progressing well, with her Hemoglobin A1c at 6.0, indicating effective glycemic control. She is advised to continue with her current regimen and maintain annual eye examinations to monitor for diabetic retinopathy. For her hypertriglyceridemia, the patient will be restarted on a GLP-1 agonist, Mounjaro, at a low dose to further improve her triglyceride levels and assist with weight management. She is currently on fenofibrate, fluvastatin, and omega- 3 fatty acids, which have shown some improvement. Further laboratory tests will be conducted to investigate her low alkaline phosphatase levels, including zinc, magnesium, , and ceruloplasmin levels. R epeat labs are scheduled in two months to monitor cholesterol, liver function, and kidney function. Discussion Notes I discussed with the patient the importance of maintaining her current diabetes management plan, given her excellent A1c results. We also talked about restarting Mounjaro to help with her triglyceride levels and weight management. I explained the need for further tests to address her low alkaline phosphatase levels and the plan to repeat labs in two months to monitor her overall health. Patient Instructions - Continue current diabetes medications and lifestyle modifications. - Schedule and attend annual eye exams. - Restart Mounjaro as prescribed to rehan ge triglyceride levels and support weight loss. - Follow up with repeat labs in two [facility]. [facility] Medical History Fatty liver Family History Brother Family history of substance abuse Family history of mental disorder Social History Housing: House Patient Tobacco Use Status: Never used Tobacco e-Cigarette/Vaping Use: Never Used service: No Current occupational status: employed Cognitive needs: No Hearing needs: No Vision needs: Yes Questionnaire Thrive Questionnaire Date Thrive assessed: 10/25/24 I am a: Patient What is your living situation today?: I have a steady place to live Within the past 12 months, did the food you bought not last and you didn't have the money to get more?: Never true Within the past 12 months, did you worry whether your food would run out before you got money to buy more?: Never true Do you have trouble paying for medicines?: No Do you have trouble getting transportation to medical appointments?: No Do you have trouble paying your heating and electricity bill?: No Do you have trouble taking care of your child, family member or friend?: No Do you have trouble with day-to-day activities such as bathing, preparing meals, shopping, managing finances, etc.?: No Are you currently unemployed and looking for a job?: No Are you interested in more education?: No Please select the resources that you would like help with: None Currently or been in a relationship where the following occur: No concerns reported THRIVE Score: 0 TENA-7 AMB Questionnaire TENA-7 Date TENA - 7 assessed: 10/31/24 Source: Developed by Drs. Dago Quintana, Candace Jo, Roosevelt Mancia and colleagues, with an educational hugo from [employer]. Physical exam (Primary Care) Tobacco/Smoking Status: Tobacco use Status Tobacco use date assessed 10/31/24 05/28/25 07:27 Patient Tobacco Use Status Never used Tobacco 05/28/25 07:27 e-Cigarette/Vaping Use Never Used 05/28/25 07:27 Thrive Assessment: Date of Thrive Assessment Date Thrive assessed 10/25/24 05/28/25 07:27 Currently or been in a relationship where the following occur: No concerns reported Telehealth Telehealth Telehealth Platform: [facility] Location of provider rendering services: practice address Location of patient: address on file Patient Identification confirmed using: Name, : Yes Telehealth method: video Patient verbally consented to treatment: Yes Patient verbally consented to billing insurance company: Yes Patient informed of any privacy concerns related to visit: Yes Minutes spent on Phone/Video with Pt.: 13 Coding Level of Care Code Tele Est Pt Level 3 (87138) Diagnoses Dyslipidemia E78.5 High triglycerides E78.1 Diabetes E11.9 Low serum alkaline phosphatase R74.8 Assessment & Plan Assessment & Plan (1) Dyslipidemia: Code(s): E78.5 - Hyperlipidemia, unspecified Category: Medical (2) High triglycerides: Code(s): E78.1 - Pure hyperglyceridemia Category: Medical (3) Diabetes: Code(s): E11.9 - Type 2 diabetes mellitus without complications Category: Medical (4) Low serum alkaline phosphatase: Code(s): R74.8 - Abnormal levels of other serum enzymes Category: Medical Plan . Orders: Orders Comprehensive [place]. Panel Fast 2 Months E11.9 - Type 2 diabetes mellitus without complications, E78.1 - Pure hyperglyceridemia, E78.5 - Hyperlipidemia, unspecified Ceruloplasmin Today R74.8 - Abnormal levels of other serum enzymes Lipid Panel 2 Months E11.9 - Type 2 diabetes mellitus without complications, E78.1 - Pure hyperglyceridemia, E78.5 - Hyperlipidemia, unspecified Magnesium Today R74.8 - Abnormal levels of other serum enzymes Vitamin B12 and Folate Today R74.8 - Abnormal levels of other serum enzymes Zinc Today R74.8 - Abnormal levels of other serum enzymes Medications: New tirzepatide (Mounjaro) for 4 weeks 2.5 mg (0.5 mL) subcut QWEEK 2 mL 0RF
== END 2025-05-28 07:31 | disposition home or self-care (01) ==
LOC: HO.HMCC 07:01
PROVIDERS: PCP Nurse Practitioner Family; Visit Provider Nurse Practitioner Family
DX: E11.69 Type 2 diabetes mellitus with other specified complication (principal); E78.5 Hyperlipidemia, unspecified; E78.1 Pure hyperglyceridemia; R74.8 Abnormal levels of other serum enzymes

== ENCOUNTER 2025-08-09 08:13 | Outpatient (REF) | payer OTHER, SELFPAY ==
[2025-08-09 11:15] LABS: Appearance Urine Clear; Glucose Urine UA Negative (Negative); PH 6.5 (5.0-9.0); Specific Gravity - Urine 1.010 (1.005-1.025); UMIC TRIGGER UACC YES
[2025-08-09 11:31] LABS: Alanine Aminotransferase 22 U/L (0-31); Albumin Level 4.5 g/dL (3.5-5.0); Alkaline Phosphatase 23 U/L (39-117); Anion Gap 14 (12-20); Aspartate Amino Transferase 24 U/L (5-31); Blood Urea Nitrogen 14 mg/dL (9-16); Calcium 10.6 mg/dL (8.4-10.2); Carbon Dioxide 22 mmol/L (22-29); Chloride 108 mmol/L (96-108); Cholesterol 192 mg/dL (<200); Estimated Glomerular Filt Rate > 60; HDL Cholesterol 33 mg/dL (>40); Magnesium 1.8 mg/dL (1.6-2.6); Potassium 4.5 mmol/L (3.3-5.1); Sodium 139 mmol/L (135-145); Total Protein 7.3 g/dL (6.5-8.0); Triglycerides 549 mg/dL (<150)
[2025-08-09 12:46] LABS: Folate 9.6 ng/mL (> or = 4.0); Vitamin B12 403 pg/mL (200-900)
== END 2025-08-09 08:14 | disposition home or self-care (01) ==
LOC: HO.HMGCLDS 08:13
PROVIDERS: PCP Nurse Practitioner Family; Visit Provider Nurse Practitioner Family
DX: E11.9 Type 2 diabetes mellitus without complications (principal); E78.1 Pure hyperglyceridemia; E78.5 Hyperlipidemia, unspecified; R74.8 Abnormal levels of other serum enzymes
CPT/HCPCS: 36415; 80053; 80061; 81001; 82390; 82607; 82746; 83735